=== PATIENT | female | born 1955 | race Caucasian/White ===

== ENCOUNTER 2022-10-08 06:19 | Day surgery (SDC) | payer OTHER, SELFPAY ==
[2022-09-21 08:48] VITALS: BMI 41.3
--- NOTE | 2022-10-08 06:00 | DI.RAD.S_ITS ---
PROCEDURE: XR SHOULDER RT MIN 2V INDICATIONS: prosthesis placement TECHNIQUE: 1 views of the shoulder were acquired. COMPARISON: None. FINDINGS: Bones: Patient is status post right shoulder arthroplasty. Shoulder alignment is anatomic. No fractures or dislocations. No suspicious bony lesions. Moderate acromioclavicular joint osteoarthritic changes are seen. Visualized ribs appear intact. Soft tissues: Postsurgical changes are seen in lateral right shoulder soft tissue. IMPRESSION: Postop changes from right shoulder arthroplasty with anatomic shoulder alignment. No fracture or dislocation. No gross hardware loosening or failure. Dictated by: J Luis Boyd M.D. on 10/08/2022 at 10:52 Approved by: J Luis Boyd M.D. on 10/08/2022 at 10:54
[2022-10-08 06:45] VITALS: BMI 41.3
[2022-10-08 07:09] VITALS: BP 137/54; PULSE 85; RESP 20; TEMP 36.4; O2SAT 94
[2022-10-08] MEDS: CELECOXIB 200 MG CAPSULE PO (07:17)
[2022-10-08] MEDS: LACTATED RINGERS 1,000 ML 42 ML IV ×2 (07:17→08:50)
[2022-10-08] MEDS: PREGABALIN 75 MG CAPSULE PO (07:17)
[2022-10-08] MEDS: ACETAMINOPHEN 325 MG TABLET 975 MG PO (07:17)
--- NOTE | 2022-10-08 07:24 | PM.PREOP ---
Pre-operative Note Interval Note History & Physical reviewed/Exam performed by Physician: Yes Changes to H&P: No
[2022-10-08 07:31] LABS: COVID19 -Nasal RAPID Negative (Negative)
[2022-10-08] MEDS: CEFAZOLIN VIAL 3 GM in SODIUM CHLORIDE 0.9% 100 ML IV (08:05)
[2022-10-08] MEDS: TRANEXAMIC ACID 1,000 MG VIAL 1000 MG INJ ×2 (08:10→09:34)
--- NOTE | 2022-10-08 08:24 | SUR.OPER ---
Beach chair with Maquet shoulder positioner. Lower body on padded OR bed. Head in foam padded head cradle, secured with straps. Non-operative arm secured <90 degrees abduction on padded arm board with gel pad under arm. 2 pillows under knees. Safety belt at thigh. Cloth tape over blanket over lower legs. Tape across torso. Gel pad under heels. Heels floated.
[2022-10-08] MEDS: BUPIVACAINE 0.25% (PF) 60 ML, EPINEPHrine 0.3 MG INJ (09:24)
--- NOTE | 2022-10-08 09:46 | P.OP_ITS ---
Operative Date/Time/Diagnoses Date of procedure: 10/08/22 Time of procedure: 09:46 Pre-op diagnosis: Right glenohumeral arthritis Post-op diagnosis: same Procedure & Clinicians Procedure: Right anatomic total shoulder arthroplasty Same procedure as scheduled: Yes Indications: This is a 67-year-old female who has primary osteoarthritis of the glenohumeral joint. Symptoms have been present for years, insidious onset. Patient has failed conservative therapy including injections, physical therapy, anti- inflammatories and activity modification. After extensive discussion in clinic, they wished to go forward with surgery. Risks and benefits were described including the risk of infection, bleeding, damage to internal structures including nerves. We also discussed the risk of failure of surgery and the need for revision surgery as well as the risk of anesthesia. The patient expressed understanding with these risks and wished to go forward with surgery. Surgeon: Jovon Hanson Metal Furniture Polisher: Terri Forte Anesthesia Type: General Operative Notes Findings: Findings: Osteoarthritis of the glenoid and humeral head as noted on preoperative imaging and under direct visualization Prosthetic devices, grafts, tissues, transplants, or devices: [employer]plants CortiLoc Pegged Glenoid UHMWPE [M35] Simpliciti Nucleus Size [2] Estimated Blood Loss (mL): 50 Blood products transfused: none Procedure in detail: Operative note: Patient was seen in the preoperative holding unit. The correct right shoulder was identified and marked with my initials. Again we discussed the risks and benefits of surgery and they wished to go forward with surgery. The patient was brought back to the operating room and placed supine on the operating table. She underwent smooth endotracheal intubation. All prominences were padded and they were placed into the beach chair position. Intravenous antibiotics were given. The right shoulder was then prepped with the standard sterile preparation and draping. A time-out was then performed in my initials were again identified on the correct shoulder. 1 g of IV tranexamic acid was given. A standard deltopectoral incision was made. Skin flaps were made. The cephalic vein was identified and retracted laterally. This was protected throughout the remainder of the case. Sharp dissection was made along the deltoid, subacromial and subcoracoid space to release adhesions. The conjoined tendon was identified and the axillary nerve was palpated and continuous using the tug test. It was protected throughout the remainder of the case. A brown retractor was placed underneath the deltoid muscle and a darach retractor underneath the conjoint tendon. The anterior circumflex artery and associated veins on the lower border of the subscapularis were identified and tied off using 0-Vicryl. The biceps tendon was identified in the bicipital groove. This was released from its sheath, and taken from its origin on the glenoid and tied into the pectoralis tendon for a solid tenodesis. We then began a subscapularis peel. The subscapularis was tagged with an Ethibond suture. A 360 degree circumferential release of the subscapularis was performed with protection of the axillary nerve. The coracohumeral ligament was released at the base of the coracoid. The coracoacromial ligament was left intact. The shoulder was then dislocated. Osteophytes were removed using combination of rongeur and osteo tome. The rotator cuff was noted to be intact. Using an oscillating saw a conservative humeral head cut was made using the patient's hoopa version. The head was measured and a guide for size 2 simpliciti humeral head was used to drill a central hole followed by impaction. Attention was then turned to the glenoid. After retracting the humeral head posteriorly, release of the capsule and labrum was performed. Central guidewire was placed. The glenoid was then reamed and a size medium. Peripheral holes were drilled. At this point dilute Betadine wash was performed for 2 minutes. Medium viscosity cement was mixed and the drill holes were completely dried. A all polyethylene pegged glenoid was then selected, and cemented into the glenoid. Turning back to the humerus, the humeral head was delivered and 3 seperate Nice Loupes were passed through drill holes in the bicipital groove. The Size 2 nucleus was then impacted into the humerus and a size 48 stemless humeral head was placed. The shoulder was then reduced and again brought through range of motion and was felt to be stable. The interval was then closed using #2 ethibond. The subscapularis was then repaired using a modified racking hitch with niece loupes. The deltopectoral interval was then closed with #2 Ethibond. The skin was closed with 2-0 PDS and lalit followed by Aquacel dressing. Patient was awoken from anesthesia and brought back to the postoperative recovery unit without issue. They were placed into a sling. Assisting participation: This operation could not have been safely performed (without compromising the technical results or length of the procedure) without the assistance of a skilled surgical device sales representative. The surgical device sales representative was medically necessary for proper positioning, retraction and manipulation of instruments, proper exposure, graft prep, and manipulation of tissue. Complications: none Post-operative Condition: stable Disposition: PACU Plan for aftercare: Postoperative instructions: Sling to remain on for 6 weeks. No external rotation past neutral for 6 weeks. Okay for sling to come off for shower and gentle pendulum exercises. Okay to shower over the Aquacel dressing. If any water gets underneath the dressing, remove the dressing. First postoperative visit in 2 weeks.
--- NOTE | 2022-10-08 09:52 | SUR.PREOP ---
Block start time 07 . Monitoring initiated and maintained throughout procedure. Oxygen and medications given per anesthesiologist instructions. Patient remained stable throughout procedure, no adverse reactions noted. Block end time 0738.
[2022-10-08 10:10] VITALS: BP 98/58; PULSE 102; RESP 22; TEMP 36.3; O2SAT 90
[2022-10-08 10:15] VITALS: BP 111/54; PULSE 99; RESP 20; O2SAT 94
[2022-10-08 10:20] VITALS: BP 115/42; PULSE 101; RESP 20; O2SAT 94
[2022-10-08 10:31] VITALS: BP 103/55; PULSE 102; RESP 18; TEMP 36.7; O2SAT 94
[2022-10-08 10:41] VITALS: BP 103/55; PULSE 97; RESP 18; O2SAT 93
--- NOTE | 2022-10-08 11:27 | SUR.PHASEII ---
pt reported no pain on DC was using IS and sat over 94%
== END 2022-10-08 11:15 | disposition home or self-care (01) ==
LOC: OR 06:21 → AC 06:23
PROVIDERS: Referring Provider Orthopaedic Surgery; Visit Provider Orthopaedic Surgery
PROC: 0RQJ0ZZ Repair Right Shoulder Joint, Open Approach (ICD-10-PCS; CPT 23472; principal; 2022-10-08 07:45)
DX: M19.011 Primary osteoarthritis, right shoulder (principal); M75.01 Adhesive capsulitis of right shoulder; M25.711 Osteophyte, right shoulder; Z20.822 Contact with and (suspected) exposure to COVID-19
CPT/HCPCS: 23472; 64415; 73030; 87635; C1776; C9803; J0171; J0690; J1100; J2250; J2405; J2704; J3010

== ENCOUNTER 2023-04-05 06:19 | Day surgery (SDC) | payer MEDICARE, OTHER, SELFPAY ==
[2023-03-31 13:01] VITALS: BMI 41.0
[2023-04-05 06:47] VITALS: BP 141/73; PULSE 92; RESP 16; TEMP 36.1; O2SAT 95; BMI 41.0
[2023-04-05] MEDS: LACTATED RINGERS 1,000 ML 42 ML IV (07:09)
--- NOTE | 2023-04-05 07:43 | PM.PREOP ---
Pre-operative Note Interval Note History & Physical reviewed/Exam performed by Physician: Yes Changes to H&P: No
[2023-04-05] MEDS: CEFAZOLIN 2 GM/100 ML PREMIX 100 ML IV (07:59)
--- NOTE | 2023-04-05 08:09 | SUR.OPER ---
Prone on spine table, head in foam head support, padded chest and pelvic supports, gel pad at knees, lower legs supported by pillows; nipples, genitalia and toes free of pressure, arms secured on foam padded arm boards at <90 degrees abduction. Tape over blanket at thigh secured to table.
[2023-04-05] MEDS: BUPIVACAINE 0.25% W/ EPI 30 ML VIAL INJ (08:18)
[2023-04-05] MEDS: methylPREDNISolone acetate 80 MG/ML VIAL 40 MG INJ (08:19)
--- NOTE | 2023-04-05 08:41 | PM.OP.1 ---
Operative Date/Time/Diagnoses Date of procedure: 04/05/23 Time of procedure: 07:40 Pre-op diagnosis: 1. L2-3 spinal stenosis with neurogenic claudication 2. Epidural lipomatosis Post-op diagnosis: same Procedure & Clinicians Procedure: 1. L2-3 laminectomy with bilateral facetectomies 2. Utilization of microsurgical technique and operating microscope Same procedure as scheduled: Yes Indications: Patient has been having chronic back pain and worsening lumbar radiculopathy and symptoms of neurogenic claudication. Patient failed multiple conservative management with worsening pain weakness and numbness in her lower extremity. Patient has been having difficulty performing activity of daily living. After discussing risks benefits of treatment options, patient elected proceed with surgery. Surgeon: Leticia Lynch Nipple Machine Operator: Bruno Clinton Click Yes if Unassisted: No Anesthesia Type: General Operative Notes Closure Type: primary Specimen(s): none sent Estimated Blood Loss (mL): 5 Blood products transfused: none Procedure in detail: Patient was seen in the preoperative area. Risks and benefits of the surgery was discussed with the patient. Informed consent was obtained from the patient and placed in the chart. Surgical site was marked. Patient was taken to the operative room. General anesthesia was administered. Prophylactic antibiotic was given to the patient less than 30 min before the incision was made. Patient was placed into a prone position on the Juan Manuel table. Patient's back was then prepped and draped in the sterile fashion. Time-out was performed at this time. Using AP and lateral C-arm imaging the interval between L2-3 was identified and marked on patient's back. A 1 inch incision 1 in from midline was made on the left side. The fascia was incised in line with skin incision. Globus MARS retractors was placed inside the incision and docked onto the L2 lamina. Using microsurgical technique and operating microscope, a L2 laminectomy was performed using a Kerrison rongeur. Liagamentum flavum was resected at the site of the laminotomy. Either side of the dura was exposed. Bilateral partial facetcomies was performed to further decompress the lateral recess. Patient was also found to have significant amount of epidural lipomatosis which further contributes to patient's severe spinal stenosis. The epidural lipomatosis were removed using pituitary and Kerrison rongeur to further decompress the epidural space. After the laminectomy was completed, the area medial lateral superior and inferior to the area of the laminectomy was inspected and explored using a micro curette. No other impinging structure was identified. The wound was then irrigated with sterile normal saline. 40 mg Depo-Medrol was placed into the epidural space. The deep fascia was closed with 1-0 Vicryl. The subcutaneous tissue was closed with 2-0 Vicryl. The skin was closed with skin lalit. Patient tolerated the procedure well. There were no complications. Patient was transferred recovery room in stable condition. Patient will be discharged after criteria is met from the recovery room. Complications: none Post-operative Condition: stable Disposition: PACU Plan for aftercare: Discharge to home
[2023-04-05 08:50] VITALS: BP 194/98; PULSE 101; RESP 18; TEMP 36.9; O2SAT 95
[2023-04-05 08:56] VITALS: BP 155/95; PULSE 99; RESP 21; TEMP 36.8; O2SAT 98
--- NOTE | 2023-04-05 08:59 | DI.RAD.S_ITS ---
PROCEDURE: XR LUMBAR SPINE 2-3V INDICATIONS: L 2-3 LAMINECTOMY TECHNIQUE: 2 C arm operative views of the lumbar spine were acquired. COMPARISON: [facility] NEGRITO [place], XR LUMBAR SPINE 2 OR 3 VIEWS, 05/14/2022, 10:51. FINDINGS: C-arm imaging utilized during lumbar surgery demonstrates that the C2-C3 level has been localized posteriorly with a metallic instrument. Anold moderate C2 compression fractures present. IMPRESSION: Operative imaging utilized during lumbar surgery. Dictated by: Florian Brunson M.D. on 04/05/2023 at 9:55 Approved by: Florian Brunson M.D. on 04/05/2023 at 9:57
[2023-04-05] MEDS: OXYCODONE IR 5 MG TABLET PO ×2 (09:01→09:45)
[2023-04-05 09:02] VITALS: PULSE 95; RESP 16; TEMP 36.8; O2SAT 94
[2023-04-05] MEDS: ONDANSETRON 4 MG/2 ML INJ IV (09:02)
[2023-04-05 09:09] VITALS: BP 143/55; PULSE 96; RESP 18; TEMP 36.7; O2SAT 94
[2023-04-05 10:06] VITALS: BP 138/74; PULSE 89; RESP 16; TEMP 36.2; O2SAT 94
== END 2023-04-05 09:50 | disposition home or self-care (01) ==
PROVIDERS: Referring Provider Orthopaedic Surgery Orthopaedic Surgery of the Spine; Visit Provider Orthopaedic Surgery Orthopaedic Surgery of the Spine
PROC: (CPT 63047; principal; 2023-04-05 07:45)
DX: M48.062 Spinal stenosis, lumbar region with neurogenic claudication (principal); M54.16 Radiculopathy, lumbar region; E11.9 Type 2 diabetes mellitus without complications; Z79.84 Long term (current) use of oral hypoglycemic drugs; I10 Essential (primary) hypertension
CPT/HCPCS: 63047; 72100; 76000; J0330; J0690; J1040; J1100; J2405; J2704; J3010; J3490

== ENCOUNTER 2025-01-02 15:26 | Inpatient (IN) | payer MEDICARE, OTHER, SELFPAY ==
[2024-12-25 12:45] VITALS: BMI 39.9
[2025-01-02] VITALS (9 sets, daily range): BP systolic 140–156; BP diastolic 57–71; PULSE 87–98; RESP 12–18; TEMP 35.8–36.8; O2SAT 93–97; BMI 39.9
--- NOTE | 2025-01-02 | DI.RAD.S_ITS ---
PROCEDURE: XR PELVIS 1-2V INDICATIONS: INTEROP PELVIS TECHNIQUE: Intra-operative view of the pelvis and hip acquired. COMPARISON: None. FINDINGS: Bones: Intraoperative devices prior to placement of arthroplasty prostheses are in expected positions. No fractures or suspicious bony lesions. IMPRESSION: Single intraoperative view demonstrating right hip arthroplasty. Dictated by: Chichi Mcgarry M.D. on 01/02/2025 at 17:01 Approved by: Chichi Mcgarry M.D. on 01/02/2025 at 17:01
--- NOTE | 2025-01-02 06:00 | DI.RAD.S_ITS ---
PROCEDURE: XR HIP W PEL IF DONE RT 2V INDICATIONS: TAMMIE TECHNIQUE: AP pelvis and lateral view of the hip acquired. COMPARISON: None. FINDINGS: Bones: Patient is status post total right hip arthroplasty, with hardware components in expected positions. The hip joint appears congruent. The visualized bony structures appear intact. A pre-existing total left hip arthroplasty is noted. Soft tissues: Overlying postoperative changes are noted. No suspicious soft tissue densities. IMPRESSION: Expected immediate postoperative appearance, status post total right hip arthroplasty. Dictated by: Florian Brunson M.D. on 01/02/2025 at 19:04 Approved by: Florian Brunson M.D. on 01/02/2025 at 19:04
[2025-01-02 12:09] LABS: POC Glucose 204 mg/dL (70-99)
[2025-01-02] MEDS: LACTATED RINGERS 1,000 ML 42 ML IV ×2 (12:27→17:16)
[2025-01-02] MEDS: CELECOXIB 200 MG CAPSULE PO (12:27)
[2025-01-02] MEDS: ACETAMINOPHEN 325 MG TABLET 975 MG PO (12:28)
[2025-01-02] MEDS: VANCOMYCIN 1,000 MG in SODIUM CHLORIDE 0.9% 250 ML 250 MG IV (13:20)
--- NOTE | 2025-01-02 14:14 | PM.PREOP ---
Pre-operative Note Interval Note History & Physical reviewed/Exam performed by Physician: Yes Changes to H&P: No
--- NOTE | 2025-01-02 14:32 | P.OP_ITS ---
Operative Date/Time/Diagnoses Date of procedure: 01/02/25 Time of procedure: 14:33 Pre-op diagnosis: Right hip OA Post-op diagnosis: same Procedure & Clinicians Procedure: Right total hip arthroplasty posterior approach Same procedure(s) as scheduled: Yes Indications: The patient has had progressively worsening right hip pain with radiographic changes consistent with arthritis. Non-operative management has failed and the patient has requested total hip replacement. The risks, benefits and alternatives to surgery were discussed with the patient prior to proceeding. Risks discussed included, but were not limited to, failure to relieve pain, leg length discrepancy, dislocation, stiffness, infection, nerve damage, deep venous thrombosis, pulmonary embolism, stroke, coma, heart attack, permanent paralysis and , as well as the potential need for eventual revision of the prosthetic. Surgeon: Shaniqua Hernandez Tea Room Manager: Gutierrez Bautista Anesthesia Type: General and Spinal Operative Notes Findings: Severe right hip OA, adequate stability, adequate bone Closure Type: primary Specimen(s): none sent Prosthetic devices, grafts, tissues, transplants, or devices: [employer] Synergy size 10 high offset, R3 cup 50mm, neutral poly liner,one 6.5 mm screw, 36 by 50 Applied: none Estimated Blood Loss (mL): 250 Blood products transfused: none Procedure in detail: The patient was seen in the pre-operative area, where the patient identified the right hip as the operative site and this was marked with my initials. The patient received pre-operative antibiotics and was taken to the operating room and placed on the operative table in the left lateral decubitus position after satisfactory anesthesia. A interactive multimedia designer out was performed. The right leg was prepared from the ankle to the iliac crest with ChloroPrep in the usual fashion and draped through sterile drapes. A PA was used during the procedure was essential for intraoperative retraction and safe implantation of the components. The hip was approached through an approximately 20 cm incision centered over the greater trochanter and curving gently posteriorly as it went proximally. This was carried sharply to the fascia gris, which was divided and retracted with a self retaining retractor. The trochanteric bursa was excised with care being taken to avoid the sciatic nerve, which was identified and protected throughout the case. The short external rotators were incised and the capsulomuscular flap was raised and tagged for later repair. The hip was dislocated, and a femoral neck osteotomy performed approximately 15 mm above the lesser trochanter. Retractors were placed around the femur. The canal was opened with a box cutting osteotome, followed by a T handled reamer and a lateralizing reamer. The reamers were used and then the sequential broaches was then used, followed by sequential broaching until there was good stability of the broach in the femur. Retractors were placed to expose the acetabulum. The labrum and central soft tissues were removed. Reaming was performed initially going up in 2 mm increments, then 1 mm increments until good bite was obtained with an odd sized reamer. The cup 1 mm larger than the last reamer was then inserted using the appropriate anteversion guides. It was further stabilized with a single screw. A trial neutral liner was placed. The broach was placed in the canal. A trial head and neck were then placed and the hip relocated and checked for leg length and stability. An intraoperative film confirmed the component position and no evidence of fracture. The patient was stable in the position of sleep, of squatting, and could be put through a range of motion with 45 degrees internal rotation without dislocation. At 90 degrees flexion, internal rotation to 70 degrees was possible before dislocation. This was felt to be satisfactory and the appropriate components were opened, and the trials were removed. The acetabular liner was impacted into position. The final stem was then impacted into the prepared femoral canal. A brief Betadine soak was performed while trialing with head options. The hip was meticulously irrigated with normal saline. Finally the femoral head was impacted onto the stem. The acetabulum was cleared of all material and the hip relocated one final time. The capsulomuscular flap was then repaired to the greater trochanter though an awl hole using the tag sutures. The short external rotators were repaired with a nonabsorbable suture. The fascia gris was closed with Vicryl. The subcutaneous layer was closed with barbed sutures and skin lalit. A luana dressing was applied and the patient was taken to recovery having tolerated the procedure well. Complications: none Post-operative Condition: stable Disposition: same day surgery Plan for aftercare: The patient will be maintained on a standard total hip replacement protocol with weight bearing as tolerated and posterior hip precautions. The patient will receive Aspirin and sequential compression devices for DVT prophylaxis. The patient will be discharged home when safe for the home environment.
[2025-01-02] MEDS: CEFAZOLIN 2 GM/100 ML PREMIX 100 ML IV ×2 (15:05→21:56)
[2025-01-02] MEDS: TRANEXAMIC ACID 1,000 MG VIAL 1000 MG INJ (15:10)
--- NOTE | 2025-01-02 15:27 | SUR.OPER ---
Lateral on padded OR bed. Gel axillary roll. Arms secured on padded armboard with pillow supporting top arm. Padded hip positioner braces x4 - anterior and posterior chest and pelvis. Additional gel pad used anterior pelvis. Gel pad under bottom leg from knee to foot and secured with tape over sheet.
[2025-01-02] MEDS: BUPIVACAINE 0.25% W/ EPI 30 ML VIAL 60 ML INJ (15:48)
[2025-01-02] MEDS: BUPIVACAINE LIPOSOME 266 MG/20 ML VIAL INJ (15:49)
[2025-01-02] MEDS: EPINEPHrine 1 MG/ML TOP (15:56)
[2025-01-02 18:04] LABS: POC Glucose 249 mg/dL (70-99)
[2025-01-02] MEDS: INSULIN REGULAR 100 UNIT/ML 3 ML VIAL SUBCUT (18:15)
--- NOTE | 2025-01-02 18:19 | SUR.PHASEI ---
1805 poc glucose 249 provider notified
[2025-01-02] MEDS: INSULIN REGULAR 100 UNIT/ML 3 ML VIAL IV (18:36)
[2025-01-02] MEDS: ACETAMINOPHEN IV 1,000 MG/100 ML VIAL 400 MG IV (18:36)
[2025-01-02 18:38] LABS: POC Glucose 244 mg/dL (70-99)
[2025-01-02] MEDS: OXYCODONE IR 5 MG TABLET PO ×2 (18:38→22:05)
[2025-01-02 21:13] LABS: POC Glucose 228 mg/dL (70-99)
[2025-01-02] MEDS: LACTATED RINGERS 1,000 ML 100 ML IV (21:45)
[2025-01-02] MEDS: ACETAMINOPHEN 325 MG TABLET 650 MG PO (21:45)
[2025-01-02] MEDS: GABAPENTIN 600 MG TABLET PO (21:47)
[2025-01-02] MEDS: ASPIRIN EC 81 MG TABLET PO (21:48)
[2025-01-02] MEDS: METFORMIN HCL 500 MG TABLET 1000 MG PO (21:48)
[2025-01-02] MEDS: ATORVASTATIN 20 MG TABLET PO (21:48)
[2025-01-02] MEDS: DOCUSATE 100 MG CAPSULE PO (21:49)
[2025-01-03 01:50] VITALS: BP 131/64; PULSE 89; RESP 18; TEMP 35.9; O2SAT 95
[2025-01-03 05:50] VITALS: BP 136/59; PULSE 89; RESP 18; TEMP 36.2; O2SAT 94
[2025-01-03 06:43] LABS: Hematocrit 29.5 % (36-46)
[2025-01-03 07:31] LABS: POC Glucose 248 mg/dL (70-99)
--- NOTE | 2025-01-03 07:45 | P.DS_ITS ---
History of Present Illness History of Present Illness Date Patient Seen: 01/03/25 Time Patient Seen: 07:30 Chief complaint: OPB Narrative: The patient has had progressively worsening right hip pain with radiographic changes consistent with arthritis. Non-operative management has failed and the patient has requested total hip replacement. The risks, benefits and alternatives to surgery were discussed with the patient prior to proceeding. Risks discussed included, but were not limited to, failure to relieve pain, leg length discrepancy, dislocation, stiffness, infection, nerve damage, deep venous thrombosis, pulmonary embolism, stroke, coma, heart attack, permanent paralysis and , as well as the potential need for eventual revision of the prosthetic. Discharge Providers Provider Discharge Date: 01/03/25 Consults: 01/02/25 06:00 Consult to Anesthesiology Routine Comment: Consulting Provider: Anesthesiologist Reason for consultation: Regional block for post operative pain control Has provider been notified: No 01/02/25 20:45 Consult to Dietitian, Adult Routine Comment: Reason For Exam: diabetic control Consult to Discharge Planning Routine Comment: Consult to Occupational Therapy Evaluate & Treat Comment: Physician Instructions: Evaluate and treat Consult to Physical Therapy Evaluate & Treat Comment: Physician Instructions: post op TAMMIE protocol Discharge provider: Gutierrez Bautista PA-C Summary Hospital Course Hospital Course: Procedure: Right total hip arthroplasty posterior approach Same procedure(s) as scheduled: Yes Surgeon: Shaniqua Hernandez Engine Emission Technician: Gutierrez Bautista Anesthesia Type: General and Spinal Operative Notes Findings: Severe right hip OA, adequate stability, adequate bone Closure Type: primary Specimen(s): none sent Prosthetic devices, grafts, tissues, transplants, or devices: [employer] Synergy size 10 high offset, R3 cup 50mm, neutral poly liner,one 6.5 mm screw, 36 by 50 Applied: none Estimated Blood Loss (mL): 250 Blood products transfused: none Status at Discharge Cognitive/behavioral status at discharge: oriented Functional status at discharge: uses cane/walker Overall status at discharge: patient is back to baseline Time Spent with Patient Time spent: Less than 30 minutes Exam Vital Signs (past 8 hours): - 01/03/25 01:50 01/03/25 05:50 Temperature 96.6 F L 97.2 F L Pulse Rate 89 89 Respiratory Rate 18 18 Blood Pressure 131/64 136/59 L Pulse Oximetry 95 94 Oxygen Flow Rate 0.5 0 Oxygen Delivery Method Room Air Oxygen Flow Rate 0 Narrative Exam Narrative: Patient's pain is controlled with oral medication. ?Pain is localized to surgical site. ?Patient declines any new numbness or tingling at the surgical extremity. ?Patient denies any shortness of breath, dizziness, light-headedness, nausea, vomiting, fever or chills. 5/5 strength in hip flexors, quadriceps, hamstrings, DF, PF, EHL bilaterally. Sensation to light touch intact throughout BLE. Calves soft, compressible, nontender. Dressing placed intraoperatively CDI. SCDs on and functioning. Resp Effort & Inspection: normal respiratory effort and able to speak in complete sentences Objective Labs 01/03/25 05:30 Labs: Laboratory Results - last 24 hr 01/02/25 01/02/25 01/02/25 12:04 17:59 18:33 Hgb Hct POC Whole Bld Glucose 204 H 249 H 244 H 01/02/25 01/03/25 01/03/25 20:46 05:30 07:30 Hgb 10.0 L Hct 29.5 L POC Whole Bld Glucose 228 H 248 H PFS Medical History (Updated 09/21/22 @ 09:15 by Bryanna Rodas RN) Anxiety Psoriasis Osteoarthritis Diabetes Acid reflux HLD (hyperlipidemia) HTN (hypertension) Hearing loss History of COVID-19 Surgical History (Updated 12/25/24 @ 12:44 by Melani Gutierrez RN) Hx of laminectomy (04/05/23) History of arthroplasty of right shoulder History of total left hip replacement Hx of tonsillectomy History of hysterectomy Hx of cholecystectomy History of Estella fundoplication Social History household members: spouse and children Smoking Status: Never smoker alcohol intake: never Discharge Assessment & Plan Assessment and Plan Plan of Treatment: Discharge to home. ? Posterior Hip Pre-cautions. Ambulate and weight bear as tolerated with assistive devices. ? Aspirin 81 mg twice a day for 6 weeks for DVT prevention. ? Baseline pain relief with acetaminophen 500mg every 4 hours as needed and ibuprofen 400 mg every 4 hours as needed. ?Patient has been prescribed oxycodone 5 mg every 4 ?hours as needed for breakthrough pain. ? Initiate physical therapy in the next 5-10 days. ? Keep dressing clean and dry. Keep dressing on until first office visit. If dressing becomes dirty or disrupted, replace with appropriate sized dressing. Follow up in clinic in 2 weeks for wound check. Contact clinic if there are any questions or concerns. Discharge Plan Discharge Plan Patient Disposition: Home Provider Discharge Comment: DC pending PT approval Discharge orders & Medications Discharge Orders: Discharge (Order); Ordered 01/03/25 Ordered By: Gutierrez Bautista Prescriptions: New aspirin 81 mg Tablet,Delayed Release (Dr/Ec) 81 mg PO BID Qty: 90 0RF Continued metformin 500 mg Tablet 1,000 mg PO BID lisinopril 20 mg Tablet 20 mg PO DAILY glipizide 10 mg Tablet 20 mg PO BID sertraline 100 mg Tablet 200 mg PO QAM simvastatin 40 mg Tablet 40 mg PO DAILY glimepiride 4 mg Tablet 4 mg PO BID ibuprofen 200 mg Tablet 600 mg PO DAILY PRN (Reason: Pain ) gabapentin 300 mg Capsule 900 mg PO BEDTIME gabapentin 600 mg tablet 600 mg PO 3XD Diet/Activity/Treatments Diet: Diet as Tolerated Activity: Ambulate multiple times a day. Use a cane or walker as needed. Full weight on leg. Cold/Heat Therapy: Use ice multiple times a day. Skin/Wound/Dressing Care Report to your healthcare provider any signs of infection, such as:: chills, fever, night sweats, unusual drainage and unusual redness Dressing: May shower. Leave dressing in place until follow up in office. No bathing or otherwise soaking incision. Call the office if the dressing becomes saturated inside. Visit Report/Discharge Packet Instructions: DI for Hip Replacement, DI for Prescription Opioid Use Stand Alone Forms: Patient Portal/API, Surgery Discharge Print Language: Scottish Discharge Data Attending Provider: Shaniqua Hernandez
[2025-01-03 08:00] VITALS: BP 138/60; PULSE 91; RESP 12; TEMP 36.4; O2SAT 94
[2025-01-03 08:47] VITALS: BP 138/61; PULSE 91
[2025-01-03] MEDS: lisinopriL 20 MG TABLET PO (08:47)
[2025-01-03] MEDS: SERTRALINE 50 MG TABLET 200 MG PO (08:47)
[2025-01-03] MEDS: METFORMIN HCL 500 MG TABLET 1000 MG PO ×2 (08:47→21:24)
[2025-01-03] MEDS: DOCUSATE 100 MG CAPSULE PO ×2 (08:48→21:25)
[2025-01-03] MEDS: GABAPENTIN 600 MG TABLET PO ×3 (08:48→21:26)
[2025-01-03] MEDS: IBUPROFEN 600 MG TABLET PO (08:48)
[2025-01-03] MEDS: ACETAMINOPHEN 325 MG TABLET 650 MG PO ×2 (08:49→15:25)
[2025-01-03] MEDS: ASPIRIN EC 81 MG TABLET PO ×2 (08:49→21:25)
--- NOTE | 2025-01-03 09:23 | DIET.CONS ---
Dietary Consultation Note Admission Date: Assessment: 69 y F admitted for right total hip arthroplasty. Dietitian consulted for diabetic control. Pt reports troubles getting BG meter. Has taken DM classes and seen DM educator in past. Hx of A1c 7.5%. Difficulty managing DM lately related to pain and no BG meter. Has plans to restart CHO portioning at meals and go swimming at gym when recovered from surgery. Ht: 170.18 cm Wt: 115.666 kg BMI: 39.9 Last BM: () MNA: 14 Billy Score: 20 Diet: 01/02/25 Dinner Carbohydrate Consistent Diet Diet Modifications: Carbohydrate level: Large (4 CHO) Reflex DM orders: Yes General (Regular) Diet Diet Modifications: Labs: Hgb 10.0 g/dL (12.0-16.0) L 01/03/25 05:30 Hct 29.5 % (36-46) L 01/03/25 05:30 Nutrition Diagnosis: Altered nutrition related lab values r/t endocrine dysfunction aeb pt reported hx of A1c 7.5% Interventions: -Discussed having PCP re-do BG meter prescription with DM dx and/or send to different pharmacy, BG meter availability at [facility] if pt able to poultry picking machine tender, or BG meter and strips delivered from a store -Reviewed CHO portioning and pairing foods Monitoring/Evaluations: pt to d/c today Electronically Signed by: Kalina Gutierrez 01/03/25 09:23 Clinical Dietitian [address] [address]
[2025-01-03] MEDS: OXYCODONE IR 5 MG TABLET PO (09:27)
--- NOTE | 2025-01-03 10:38 | CM.DANOTE ---
Addendum entered by JULIO Fernandez 01/03/25 11:50: ADD: PT is recommending SNF; patient hesitant. Updated Ortho PA that patient has not been cleared for discharge home today and needs another evening. Patient is hopeful to return home tomorrow if she progresses . Patient will be switched to INPT as of today 01/03. If patient does eventually fail to progress for home discharge, Medicare would pay for SNF stay starting 01/06/25. Bedside RN updated. CM team will follow closely for PT input over the next 24hrs. Original Note: Initial DCP Assessment Note Pt is a 69 yo female, resident of [place], now POD#1 from Rt hip surgery by Dr Hernandez PCP: Not listed Payer: JORGE/martha Reviewed chart, pt discussed in multidisciplinary rounds this morning. Patient has been discharged this morning pending PT eval and clearance. Patient reports living with spouse and 29 yo son. Patient and spouse have hx of joint replacements and have all DME needed. Patient feels confident in the ability of her spouse and son to assist as needed. Patient has prearranged outpatient PT for the next few months. PT eval to assist with dispo recommendation. No barriers identified at this time to patient's safe discharge home w/family to assist; close outpatient f/u recommended. CM team will plan to follow closely in case any DC needs or concerns arise. JULIO Baer Discharge Planning/Care Management CM Discharge Assessment Start: 01/02/25 11:29 Freq: Status: Active Protocol: Document 01/03/25 10:35 AUBREY (Rec: 01/03/25 10:37 AUBREY [id number]) Discharge Planning Assessment Assigned Discharge JULIO Soni Used Building Materials Yard Worker DPOA/Assigned Keith Bautista, spouse Designee Name Contact Information [phone] Advance Directives? No Prior Living House Arrangements Household Members spouse,children Independent with ADL Yes 's Is patient alert and Yes oriented? Needs Assistance Meal Prep,Home Chores / Shopping With DME Already Rented / Bath Bench,FWW / Walker,Cane Owned Patient/Family OP PT Therapy Preference Comment Patient has arranged outpatient PT for the next month or two Comment Pending PT eval. Discharge Plan Home Transportation Spouse Arrangement Referrals Initiated None needed
--- NOTE | 2025-01-03 10:50 | PT.IIE ---
Current Diagnoses Unilateral primary osteoarthritis, right hip (01/02/25) Surgery Performed Operation Date: 01/02/25 13:45 Actual Procedures p Total Hip Arthroplasty(Right) - Shaniqua Hernandez MD Surgical History (Last Updated 12/25/24 @ 12:44 by Melani Gutierrez, [place]) History of arthroplasty of right shoulder History of hysterectomy History of Estella fundoplication History of total left hip replacement Hx of cholecystectomy Hx of laminectomy (04/05/23) Hx of tonsillectomy Medical History (Last Updated 09/21/22 @ 09:15 by Bryanna Rodas RN) Acid reflux Anxiety Diabetes Hearing loss History of COVID-19 HLD (hyperlipidemia) HTN (hypertension) Osteoarthritis Psoriasis Physical Therapy Inpatient Evaluation/Re-Eval M1 PT/OT-IP Prior Functional Status Start: 01/03/25 12:38 Freq: NEEDED Status: Active Protocol: Document 01/03/25 10:50 AB (Rec: 01/03/25 12:49 AB [id number]) Medical Review Prior Functional Status Medical History Yes Reviewed Communication able to make needs known; [place] Mobility and Gait pt stated that she was modified independent with all mobilities and ambulation using a FWW but also stated that when she has to get up, somebody has to steady FWW for her since she uses FWW to get up to standing position Social History Household Members spouse,children Living Arrangements House Number of Floors ( One Floor Floors) Number of Stairs To 1 step to enter ; has L side grab bar by the door Enter/Railing? Home Environment High Toilet,Walk in Shower Home Equipment Front Wheel Walker,Raised Toilet Seat Without Armrests, Hand Held Shower,Grab Bars In Shower Additional Social pt has a recliner chair at home History Comment M2 PT-IP Current Condition Start: 01/03/25 12:38 Freq: NEEDED Status: Active Protocol: Document 01/03/25 10:50 AB (Rec: 01/03/25 12:49 AB [id number]) Physical Therapy Current Condition Current Condition Evaluation Date 01/03/25 Treatment Diagnosis s/p R TAMMIE posterior; difficulty in walking Onset Date 01/02/25 M3 PT-IP Subjective Start: 01/03/25 12:38 Freq: NEEDED Status: Active Protocol: Document 01/03/25 10:50 AB (Rec: 01/03/25 12:49 AB [id number]) Subjective Physical Therapy Visit Type Type Initial Evaluation Visit Start Time 10:50 Visit Stop Time 11:40 Number of CLARITY DEVELOPER Visits 0 Physical Therapy Visit Comments Patient Comments agreeable to do PT Therapy Pain Assessment Pain When Pain Assessed At Rest Pain Present Pain Present Pain Reported Location Right Hip Intensity 5 Scale Used Numeric (0 - 10) Pain Behaviors Facial Grimacing,Guarding,Wincing Pain Management Apply Cold,Distraction,Modification of Treatment,Re- Techniques positioning,Timing of Activity with Medications M4 PT-IP Mobility and Gait Start: 01/03/25 12:38 Freq: NEEDED Status: Active Protocol: Document 01/03/25 10:50 AB (Rec: 01/03/25 12:49 AB [id number]) PT-Bed Mobility Assessment Supine to Sit Supine to Sit Maximum Assistance,1 Person Assistance,2 Person Assistance,Head of Bed Elevated,Bedrails PT-Transfer Assessment Sit to and From Stand Sit to and from Maximum Assistance,2 Person Assistance,Use of Upper Stand Extremities Equipment Transfer Assistive Gait Belt,Front Wheeled Walker Device Orthotic/Prosthetic No Devices or Brace: Transfers Transfer Destination Chair Transfer Technique Stand Step Pivot Transfer Ability Level of Assist Maximum Assistance,2 Person Assistance,Use of Upper Extremities Comments Mobility Comments pt in bed and agreeable to do PT. obtained PLOF and home setup. post-op folder provided. educated pt on R hip posterior precautions. pt completed supine to sit max A x 1-2 and max cues. HOB elevated. pt required max A x 1-2 for scooting to EOB. attempted sit <>stand x 4 reps ; bed needed to be elevated for pt to be able to stand up. pt required max A x 2 and max cues. completed step transfer to chair using fWW max A x 2 and max cues. (+) R knee buckling x 3. positioned pt on the chair. call light and table placed within reach. informed pt regarding SNF rehab recommendation at this time. pt understood. rehabilitation caseworker informed. Gait Assessment Comments Gait Comments unable at this time PT-Balance Assessment Sitting Balance and Reactions Static Sitting Good Balance Ability Dynamic Sitting Fair Balance Ability Standing Balance and Reactions Static Standing Poor Balance Ability Dynamic Standing Poor Balance Ability Device Used FWW M5 PT-IP Objective Assessments Start: 01/03/25 12:38 Freq: NEEDED Status: Active Protocol: Document 01/03/25 10:50 AB (Rec: 01/03/25 12:49 AB [id number]) Orientation Orientation/Cognition Level of Alertness Alert Orientation Name,Place,Situation Language Function Hard of Hearing Ability Safety Awareness Decreased Safety Awareness Memory Description Short Term Impaired Gross Range of Motion Lower Extremity ROM Assessment Within Functional Limits Strength Lower Extremity Strength Assessment Right Impaired Hip 3-/5 Knee 3/5 Sensation Assessment Sensation Gross Sensation WNL Muscle Tone Muscle Tone WNL Yes M6 PT-IP Treatment Start: 01/03/25 12:38 Freq: NEEDED Status: Active Protocol: Document 01/03/25 10:50 AB (Rec: 01/03/25 12:49 AB [id number]) Physical Therapy Treatment Exercises Exercises Heel Slides Education Education Provided Precautions,Weight Bearing Status,Post-Op Packet,Safety M7 PT-IP Assessment and Plan Start: 01/03/25 12:38 Freq: NEEDED Status: Active Protocol: Document 01/03/25 10:50 AB (Rec: 01/03/25 12:49 AB [id number]) PT Summary Assessment and Plan Potential Rehabilitation Fair Potential Status of Condition Evolving at Evaluation Summary Impairments Pain,ROM,Strength,Balance,Coordination,Sensation,Tone, Cognition,Bed Mobility,Transfers,Gait,Activity Tolerance Assessment Summary pt is a 69 y/o F s/p R TAMMIE posterior approach POD 1. pt with R hip posterior precautions and is WBAT. pt requiring max A x 1-2 for bed mobility, max A x 2 for sit to stand and transfers using fWW. pt unable to ambulate at this time and has (+) R knee buckling during transfers. pt will require SNF rehab at this time. will continue to assess. Goals Bed Mobility Goal Minimal Assistance Transfer Goal Minimal Assistance,Front Wheeled Walker Gait Goal Minimal Assistance,Front Wheel Walker Gait Distance 50 Other Goals improve bed mobility, transfers, ambulation using FWW ~ 100 ft SBA up/down 1 step using FWW SBA Days to Meet Goals 10 Frequency of Treatment Frequency Of Twice a Day Treatment Treatment Plan Physical Therapy Bed Mobility Training,Transfer Training,Gait Training, Treatment Plan Therapeutic Exercise,Balance Retraining,Post Op Education,Discharge Planning,Hot or Cold Pack, Neuromuscular Re-ed,Coordination Retraining,Manual Therapy Precautions Posterior Hip No Hip Flexion > 90 degrees,No Hip Internal Rotation,No Precautions Hip Adduction Weight Bearing Status Weight Bearing Weight Bear as Tolerated Status Allowed Weight RLE WBAT Bearing Amount ( enter % or #) (%) Recommendations To Nursing Amount of Assist Mechanical Lift Needed Discharge Recommendations PT Discharge SNF Rehab Recommendations Transportation Needs Wheelchair/Cabulance at Discharge - PT assist 2
[2025-01-03] MEDS: OXYCODONE IR 10 MG TABLET PO (12:37)
[2025-01-03] MEDS: polyethylene glycoL 3350 17 GM POWD.PACK PO (12:37)
[2025-01-03] MEDS: IBUPROFEN 400 MG TABLET PO (13:22)
[2025-01-03 13:45] LABS: POC Glucose 194 mg/dL (70-99)
--- NOTE | 2025-01-03 13:55 | PT.IPTN ---
Current Diagnoses Unilateral primary osteoarthritis, right hip (01/02/25) Surgery Performed Operation Date: 01/02/25 13:45 Actual Procedures p Total Hip Arthroplasty(Right) - Shaniqua Hernandez MD Physical Therapy Treatment Note M2 PT-IP Current Condition Start: 01/03/25 12:38 Freq: NEEDED Status: Active Protocol: Document 01/03/25 10:50 AB (Rec: 01/03/25 12:49 AB [id number]) Physical Therapy Current Condition Current Condition Evaluation Date 01/03/25 Treatment Diagnosis s/p R TAMMIE posterior; difficulty in walking Onset Date 01/02/25 M3 PT-IP Subjective Start: 01/03/25 12:38 Freq: NEEDED Status: Active Protocol: Document 01/03/25 13:55 AB (Rec: 01/03/25 15:25 AB [id number]) Subjective Physical Therapy Visit Type Type Treatment Note Visit Start Time 13:55 Visit Stop Time 14:38 Number of MILL DRESSER Visits 0 Physical Therapy Visit Comments Patient Comments agreeable to do PT Therapy Pain Assessment Pain When Pain Assessed At Rest Pain Present Pain Present Pain Reported Location Right Hip Intensity 7 Scale Used Numeric (0 - 10) M4 PT-IP Mobility and Gait Start: 01/03/25 12:38 Freq: NEEDED Status: Active Protocol: Document 01/03/25 13:55 AB (Rec: 01/03/25 15:25 AB [id number]) PT-Bed Mobility Assessment Supine to Sit Supine to Sit Maximum Assistance,1 Person Assistance Sit to Supine Sit to Supine Maximum Assistance,1 Person Assistance,2 Person Assistance,Head of Bed Elevated PT-Transfer Assessment Sit to and From Stand Sit to and from Maximum Assistance,2 Person Assistance,Use of Upper Stand Extremities Equipment Transfer Assistive Gait Belt,Front Wheeled Walker Device Orthotic/Prosthetic No Devices or Brace: Comments Mobility Comments pt in bed and agreeable to do PT. completed supine heel slides prior to getting up. supine to sit max A and max cues with use of bed rail and HOB elevated. max A x 1-2 for scooting to EOB. max A x 2 for sit to stand and able to march in place max A x 2 and max cues using FWW. max A to stabilize RLE. pt able to take side steps towards HOB max A x 2 and max cues using FWW. assisted pt back to bed. required max A x 1-2 and max cues. positioned pt in bed. call light and table placed within reach. M5 PT-IP Objective Assessments Start: 01/03/25 12:38 Freq: NEEDED Status: Active Protocol: Document 01/03/25 10:50 AB (Rec: 01/03/25 12:49 AB [id number]) Orientation Orientation/Cognition Level of Alertness Alert Orientation Name,Place,Situation Language Function Hard of Hearing Ability Safety Awareness Decreased Safety Awareness Memory Description Short Term Impaired Gross Range of Motion Lower Extremity ROM Assessment Within Functional Limits Strength Lower Extremity Strength Assessment Right Impaired Hip 3-/5 Knee 3/5 Sensation Assessment Sensation Gross Sensation WNL Muscle Tone Muscle Tone WNL Yes M6 PT-IP Treatment Start: 01/03/25 12:38 Freq: NEEDED Status: Active Protocol: Document 01/03/25 13:55 AB (Rec: 01/03/25 15:25 AB [id number]) Physical Therapy Treatment Exercises Exercises Heel Slides Education Education Provided Precautions,Safety M7 PT-IP Assessment and Plan Start: 01/03/25 12:38 Freq: NEEDED Status: Active Protocol: Document 01/03/25 13:55 AB (Rec: 01/03/25 15:25 AB [id number]) PT Summary Assessment and Plan Potential Rehabilitation Fair Potential Summary Impairments Pain,ROM,Strength,Balance,Coordination,Sensation,Tone, Cognition,Bed Mobility,Transfers,Gait,Activity Tolerance Progress Towards Slow Progress due to Pain,Slow Progress due to Activity Goals Tolerance Assessment Summary pt improving slowly but continues to require max A x 2 for sit to stand but was able to take a few side steps using FWW max A x 2 to position in bed. Pt will require 24/ assist and will benefit from SNF rehab. will continue to assess. Goals Bed Mobility Goal Minimal Assistance Transfer Goal Minimal Assistance,Front Wheeled Walker Gait Goal Minimal Assistance,Front Wheel Walker Gait Distance 50 Other Goals improve bed mobility, transfers, ambulation using FWW ~ 100 ft SBA up/down 1 step using FWW SBA Days to Meet Goals 10 Frequency of Treatment Frequency Of Twice a Day Treatment Treatment Plan Physical Therapy Bed Mobility Training,Transfer Training,Gait Training, Treatment Plan Therapeutic Exercise,Balance Retraining,Post Op Education,Discharge Planning,Hot or Cold Pack, Neuromuscular Re-ed,Coordination Retraining,Manual Therapy Precautions Posterior Hip No Hip Flexion > 90 degrees,No Hip Internal Rotation,No Precautions Hip Adduction Weight Bearing Status Weight Bearing Weight Bear as Tolerated Status Allowed Weight RLE WBAT Bearing Amount ( enter % or #) (%) Recommendations To Nursing Amount of Assist Mechanical Lift Needed Discharge Recommendations PT Discharge SNF Rehab Recommendations Transportation Needs Wheelchair/Cabulance at Discharge - PT assist 2
--- NOTE | 2025-01-03 14:38 | OT.IP.EVAL ---
Current Diagnoses Unilateral primary osteoarthritis, right hip (01/02/25) Surgery Performed Operation Date: 01/02/25 13:45 Actual Procedures p Total Hip Arthroplasty(Right) - Shaniqua Hernandez MD Past Medical History (Last Updated 09/21/22 @ 09:15 by Bryanna Rodas, RN) Acid reflux Anxiety Diabetes Hearing loss History of COVID-19 HLD (hyperlipidemia) HTN (hypertension) Osteoarthritis Psoriasis Surgical History (Last Updated 12/25/24 @ 12:44 by Melani Gutierrez RN) History of arthroplasty of right shoulder History of hysterectomy History of Estella fundoplication History of total left hip replacement Hx of cholecystectomy Hx of laminectomy (04/05/23) Hx of tonsillectomy Occupational Therapy Inpatient Evaluation/Re-Eval M1 PT/OT-IP Prior Functional Status Start: 01/03/25 12:38 Freq: NEEDED Status: Active Protocol: Document 01/03/25 15:54 [facility] (Rec: 01/03/25 16:11 [facility] Desktop) Medical Review Prior Functional Status Medical History Yes Reviewed Communication able to make needs known; ATQASUK Mobility and Gait pt stated that she was modified independent with all mobilities and ambulation using a FWW but also stated that when she has to get up, somebody has to steady FWW for her since she uses FWW to get up to standing position Activities of Daily Pt states her son assist with her socks. Pt has pain Living and IADL's which limited her IADL needs. Social History Household Members spouse,children Living Arrangements House Number of Floors ( One Floor Floors) Number of Stairs To 1 step to enter ; has L side grab bar by the door Enter/Railing? Home Environment High Toilet,Walk in Shower Home Equipment Front Wheel Walker,Raised Toilet Seat Without Armrests, Hand Held Shower,Manager Of Merchandising,Grab Bars In Shower Additional Social pt has a recliner chair at home History Comment M2 OT-IP Current Condition Start: 01/03/25 15:54 Freq: Status: Active Protocol: Document 01/03/25 15:54 [facility] (Rec: 01/03/25 16:11 [facility] Desktop) Occupational Therapy Current Condition Current Condition Evaluation Date 01/03/25 Treatment Diagnosis S/P R TAMMIE Posterior approach Diagnosis Onset Date 01/02/25 Post Operative Precautions Posterior Hip No Hip Flexion > 90 degrees,No Hip Internal Rotation,No Precautions Hip Adduction Weight Bearing Status Weight Bearing Weight Bear as Tolerated Status M3 OT- IP Subjective and Pain Start: 01/03/25 15:54 Freq: Status: Active Protocol: Document 01/03/25 15:54 [facility] (Rec: 01/03/25 16:11 [facility] Desktop) OT- Subjective Occupational Therapy Visit Type Type Initial Evaluation Visit Start Time 14:07 Visit Stop Time 14:38 Occupational Therapy Visit Comments Patient Comments Pt agreed to get up. Patient/Caregiver TO go home. Goals OT Pain Assessment Pain When Pain Assessed During Mobility Pain Present Pain Present Pain Reported Location Right Hip Intensity 7 Scale Used Numeric (0 - 10) M4 OT- IP ADL's Start: 01/03/25 15:54 Freq: Status: Active Protocol: Document 01/03/25 15:54 [facility] (Rec: 01/03/25 16:11 [facility] Desktop) OT [id number] Comments OT Self-Feeding Not observed. Comments OT ADL-Grooming Comments OT Grooming Comments Not performed. OT ADL-Oral Care Comments Oral Care Comments Not performed. OT ADL-Dressing General Eval Lower Body Dressing Maximum Assistance Ability Comments OT Dressing Comments Initiated education of dress the RLE first and take out last. To have assist or use of LB dressing equipment so able to follow her hip precautions. OT ADL-Toileting Comments OT Toileting Not performed. Suggested pt to get BSC. Comments OT ADL-Bathing Comments OT Bathing Comments Sponge bath more appropriate at this time. Suggested pt get a shower chair. M5 OT- IP IADL's Start: 01/03/25 15:54 Freq: Status: Active Protocol: Document 01/03/25 15:54 [facility] (Rec: 01/03/25 16:11 [facility] Desktop) OT-Instrumental Activities of Daily Living Home Safety Awareness Awareness of Need Decreased Awareness for Assistance at Home Home Safety Comments Pt feels that her son and will be able to effective assist her for her needs. Meal Preparation Meal Preparation Caregiver Provides Assist Cattle Broker Cattle Broker Caregiver Provides Assist M6 OT- IP Functional Cognition Start: 01/03/25 15:54 Freq: Status: Active Protocol: Document 01/03/25 15:54 [facility] (Rec: 01/03/25 16:11 [facility] Desktop) Cognitive Factors Limiting Selfcare Function Cognitive Ability Level of Alertness Alert Patient Orientation Name,Place,Situation Attention Span Capable of Focused Attention,Capable of Sustained Ability Attention Ability to Follow Able to Follow One Step Commands with Increased Time, Commands Able to Follow One Step Commands with Repetition Safety Awareness Decreased Ability to Apply Precautions Cognitive Comments Cognitive Assessment Pt needing reminders to incorporate her hip precautions Comments during mobility needs. Pt needing step by step instructions to best follow her precautions at this time. OT- Vision and Hearing OT- Hearing Assessment OT- Hearing WFL Assessment M7 OT- IP Mobility and Balance Start: 01/03/25 15:54 Freq: Status: Active Protocol: Document 01/03/25 15:54 [facility] (Rec: 01/03/25 16:11 [facility] Desktop) OT- Bed Mobility Assessment Supine to Sit Supine to Sit Assist Maximum Assistance,1 Person Assistance Scooting Scooting to Edge of Maximum Assistance,1 Person Assistance,2 Person Bed Assistance OT-Transfer Assessment Sit to and From Stand Sit to and from Maximum Assistance,1 Person Assistance Stand Comments Mobility Comments MAX AX 1 to get to supine. MAX AX 2 to stand to the FWW and assist to keep the RLE from buckling, balance ,and to help guide the FWW as taking side step to the HOB. Pt will benefit from a bed rail or sleep in her recliner initially. OT- Balance Assessment Sitting Balance and Reactions Static Sitting Good Balance Ability Dynamic Sitting Fair Balance Ability Standing Balance and Reactions Static Standing Poor Balance Ability Dynamic Standing Poor Balance Ability M8 OT- IP Objective Assessments Start: 01/03/25 15:54 Freq: Status: Active Protocol: Document 01/03/25 15:54 [facility] (Rec: 01/03/25 16:11 [facility] Desktop) OT Gross Range of Motion Upper Extremity Range of Motion Assessment Bilaterally Impaired OT Strength Upper Extremity Strength Assessment Bilaterally Impaired Comments Strength Comments 4-/5 to 4/5 from proximal to distal. M9 OT- IP Assessment and Plan Start: 01/03/25 15:54 Freq: Status: Active Protocol: Document 01/03/25 15:54 [facility] (Rec: 01/03/25 16:11 [facility] Desktop) OT Summary Assessment and Plan Potential Rehabilitation Good Potential Analytic Complexity Low at Evaluation Summary OT Impairments Pain,Strength,Balance,Functional Mobility,Grooming, Dressing,Toileting,Bathing,Toilet Transfers Progress Towards Slow Progress due to Pain,Slow Progress due to Activity Goals Tolerance,Slow Progress due to Cognition Assessment Summary Pt low complexity and main barriers are pain, step, and needing two person assist for bed mobility and standing to FWW. Pt is adamant of going home , but would benefit from her and son to come in for caregiver training. Pt still needing safety reminders for her hip precautions for ADL and mobility needs. Pt to go to SNF when medically stable, unless able to progress and complete caregiver training. Goals Self-Feeding Goal Independent Grooming Goal Independent Dressing Goal Moderate Assistance Toileting Goal Minimal Assistance Bathing Goal Moderate Assistance Toilet Transfer Goal Minimal Assistance Shower Transfer Goal Moderate Assistance Patient/Caregiver Demonstrate Post-Op Precautions,Caregiver Independent Education Goal Assisting Patient Days to Meet Goals 15 Frequency of Treatment Other frequency 5x/week Treatment Plan OT Treatment Plan ADL Training,Functional Cognition Training,Functional Mobility Other Treatment Transfer to [facility] with MODA x2 with FWW. Recommendations and Next Treatment Focus Discharge Recommendations OT Discharge SNF Rehab Recommendations Transportation Needs Wheelchair/Cabulance at Discharge
[2025-01-03 16:24] LABS: POC Glucose 258 mg/dL (70-99)
[2025-01-03 20:00] VITALS: BP 86/38; PULSE 85; RESP 18; TEMP 35.9; O2SAT 92
[2025-01-03] MEDS: CALCIUM CARBONATE 500 MG TAB 1000 MG PO (20:44)
--- NOTE | 2025-01-03 20:50 | PC.NURSE ---
counselor manager RN came on shift and did head to toe assessment on patient and noted BP hypotensive highest reading 80/38 Map 58 HR 82, Patient is AOX4; room air 96%, asymptomatic. RN called Surgical office evening phone line, Dr Sheriff called and was updated on Patient situation, VS; Dr Sheriff said to give NS bolus of 500mL and notify if any changes occur. Patient is currently bridged and does not have any complaints of pain or Nausea.
[2025-01-03 20:56] LABS: POC Glucose 243 mg/dL (70-99)
[2025-01-03] MEDS: ATORVASTATIN 20 MG TABLET PO (21:25)
[2025-01-04 04:22] VITALS: BP 102/45; PULSE 102; RESP 16; TEMP 36.4; O2SAT 92
[2025-01-04] MEDS: OXYCODONE IR 5 MG TABLET PO ×3 (04:23→08:48)
--- NOTE | 2025-01-04 07:06 | PM.PNPO.1 ---
Subjective Subjective Interval history: Postop right total hip arthroplasty. Patient was hypotensive overnight and had a bolus. Better this morning. Denies fevers chills nausea vomiting dizziness or weakness. States she was having some muscle spasms in her leg but Flexeril helped. States PT told her she was better yesterday. Interested in going home today. Exam Vital Signs (past 8 hours): - 01/04/25 04:22 Temperature 97.5 F L Pulse Rate 102 H Respiratory Rate 16 Blood Pressure 102/45 L Pulse Oximetry 92 Oxygen Flow Rate 0 Oxygen Delivery Method Room Air Oxygen Flow Rate 0 Narrative Exam Narrative: Alert oriented no acute distress. Answers questions appropriately. Right hip dressing in place clean dry and intact. 5/5 dorsiflexion and plantar flexion. Calf and thigh soft Objective Labs 01/03/25 05:30 Labs: Laboratory Results - last 24 hr 01/03/25 01/03/25 01/03/25 05:30 07:30 11:30 Hgb 10.0 L Hct 29.5 L POC Whole Bld Glucose 248 H 194 H 01/03/25 01/03/25 16:22 20:52 Hgb Hct POC Whole Bld Glucose 258 H 243 H PFSH Medical History (Updated 09/21/22 @ 09:15 by Bryanna Rodas RN) Anxiety Psoriasis Osteoarthritis Diabetes Acid reflux HLD (hyperlipidemia) HTN (hypertension) Hearing loss History of COVID-19 Surgical History (Updated 12/25/24 @ 12:44 by Melani Gutierrez RN) Hx of laminectomy (04/05/23) History of arthroplasty of right shoulder History of total left hip replacement Hx of tonsillectomy History of hysterectomy Hx of cholecystectomy History of Estella fundoplication Social History household members: spouse and children Smoking Status: Never smoker alcohol intake: never Assessment & Plan Post-op Postoperative Procedures: Procedures Operation Date: 01/02/25 13:45 Actual Procedure Side Surgeon p Total Hip Arthroplasty Right Shaniqua Hernandez MD Postoperative day: 2 Postoperative status: doing well Postoperative plan: routine post-op care Postoperative plan narrative: We will work with physical therapy again today. Likely home discharge today if doing well versus SNF at later date Quality VTE Deep Vein Thrombosis/Pulmonary Embolism Present on Admission: No
--- NOTE | 2025-01-04 07:10 | P.DS_ITS ---
History of Present Illness History of Present Illness Date Patient Seen: 01/04/25 Time Patient Seen: 07:10 Chief complaint: OPB Narrative: Status post right hip arthroplasty by Dr. Hernandez. Addendum to previous discharge summary. Patient stayed overnight to work with physical therapy again. Had a bolus overnight for hypotension but doing well this morning. States did better with physical therapy yesterday. Wants to go home. Vital stable this morning. Discharge Providers Provider Date of admission: 01/02/25 15:26 Discharge Date: 01/04/25 Consults: 01/02/25 06:00 Consult to Anesthesiology Routine Comment: Consulting Provider: Anesthesiologist Reason for consultation: Regional block for post operative pain control Has provider been notified: No 01/02/25 20:45 Consult to Discharge Planning Routine Comment: Consult to Occupational Therapy Evaluate & Treat Comment: Physician Instructions: Evaluate and treat Consult to Physical Therapy Evaluate & Treat Comment: Physician Instructions: post op TAMMIE protocol Discharge provider: Tita Garsia MD Summary Hospital Course Discharge Diagnosis: Hip arthritis right Hospital Course: Had a right total hip arthroplasty on 01/02/[address] Hernandez. Stayed in the hospital overnight work with physical therapy and on pain control. Was recommended for additional physical therapy sessions on postop day 1 on postop day 2 work with physical therapy the patient desired to go home. Was appropriate for discharge. Status at Discharge Cognitive/behavioral status at discharge: at baseline, oriented Functional status at discharge: uses cane/walker Overall status at discharge: patient is progressing back to baseline Exam Vital Signs (past 8 hours): - 01/04/25 04:22 Temperature 97.5 F L Pulse Rate 102 H Respiratory Rate 16 Blood Pressure 102/45 L Pulse Oximetry 92 Oxygen Flow Rate 0 Oxygen Delivery Method Room Air Oxygen Flow Rate 0 Narrative Exam Narrative: Alert and oriented no acute distress. Lungs clear to auscultation. Heart regular rate and rhythm Right hip dressing clean dry and intact dorsiflexion plantar flexion 5/5. Objective Labs 01/03/25 05:30 Labs: Laboratory Results - last 24 hr 01/03/25 01/03/25 01/03/25 07:30 11:30 16:22 POC Whole Bld Glucose 248 H 194 H 258 H 01/03/25 20:52 POC Whole Bld Glucose 243 H [facility] Medical History (Updated 09/21/22 @ 09:15 by Bryanna Rodas RN) Anxiety Psoriasis Osteoarthritis Diabetes Acid reflux HLD (hyperlipidemia) HTN (hypertension) Hearing loss History of COVID-19 Surgical History (Updated 12/25/24 @ 12:44 by Melani Gutierrez RN) Hx of laminectomy (04/05/23) History of arthroplasty of right shoulder History of total left hip replacement Hx of tonsillectomy History of hysterectomy Hx of cholecystectomy History of Estella fundoplication Social History household members: spouse and children Smoking Status: Never smoker alcohol intake: never Discharge Assessment & Plan Assessment and Plan Assessment: Postop day 2 right hip arthroplasty. Plan of Treatment: Discharge to home. ? Posterior Hip Pre-cautions. Ambulate and weight bear as tolerated with assistive devices. ? Aspirin 81 mg twice a day for 6 weeks for DVT prevention. ? Baseline pain relief with acetaminophen 500mg every 4 hours as needed and ibuprofen 400 mg every 4 hours as needed. ?Patient has been prescribed oxycodone 5 mg every 4 ?hours as needed for breakthrough pain. ? Initiate physical therapy in the next 5-10 days. ? Keep dressing clean and dry. Keep dressing on until first office visit. If dressing becomes dirty or disrupted, replace with appropriate sized dressing. Follow up in clinic in 2 weeks for wound check. Contact clinic if there are any questions or concerns. Discharge Plan Discharge Plan Patient Disposition: Home Provider Discharge Comment: DC pending PT approval Discharge orders & Medications Prescriptions: New aspirin 81 mg Tablet,Delayed Release (Dr/Ec) 81 mg PO BID Qty: 90 0RF Continued metformin 500 mg Tablet 1,000 mg PO BID lisinopril 20 mg Tablet 20 mg PO DAILY glipizide 10 mg Tablet 20 mg PO BID sertraline 100 mg Tablet 200 mg PO QAM simvastatin 40 mg Tablet 40 mg PO DAILY glimepiride 4 mg Tablet 4 mg PO BID ibuprofen 200 mg Tablet 600 mg PO DAILY PRN (Reason: Pain ) gabapentin 300 mg Capsule 900 mg PO BEDTIME gabapentin 600 mg tablet 600 mg PO 3XD Diet/Activity/Treatments Diet: Diet as Tolerated Activity: Ambulate multiple times a day. Use a cane or walker as needed. Full weight on leg. Cold/Heat Therapy: Use ice multiple times a day. Skin/Wound/Dressing Care Report to your healthcare provider any signs of infection, such as:: chills, fever, night sweats, unusual drainage and unusual redness Dressing: May shower. Leave dressing in place until follow up in office. No bathing or otherwise soaking incision. Call the office if the dressing becomes saturated inside. Visit Report/Discharge Packet Instructions: DI for Hip Replacement, DI for Prescription Opioid Use Stand Alone Forms: Patient Portal/API, Surgery Discharge Quality VTE Deep Vein Thrombosis/Pulmonary Embolism Present on Admission: No
--- NOTE | 2025-01-04 07:27 | PM.PNPO.1 ---
Subjective Subjective Interval history: She did have some hypotension overnight and required a L of fluid. She notes that she is feeling okay this morning. She also has intermittent spasms in her right leg she said the this has previously responded to Flexeril. She was difficult to mobilize yesterday. Exam Vital Signs (past 8 hours): - 01/04/25 04:22 Temperature 97.5 F L Pulse Rate 102 H Respiratory Rate 16 Blood Pressure 102/45 L Pulse Oximetry 92 Oxygen Flow Rate 0 Oxygen Delivery Method Room Air Oxygen Flow Rate 0 Narrative Exam Narrative: Alert very conversant, mild pain with range motion of the right hip, dressing intact, calf soft distally, neurologically intact distally Objective Labs 01/03/25 05:30 Labs: Laboratory Results - last 24 hr 01/03/25 01/03/25 01/03/25 07:30 11:30 16:22 POC Whole Bld Glucose 248 H 194 H 258 H 01/03/25 20:52 POC Whole Bld Glucose 243 H [facility] Medical History (Updated 09/21/22 @ 09:15 by Bryanna Rodas RN) Anxiety Psoriasis Osteoarthritis Diabetes Acid reflux HLD (hyperlipidemia) HTN (hypertension) Hearing loss History of COVID-19 Surgical History (Updated 12/25/24 @ 12:44 by Melani Gutierrez RN) Hx of laminectomy (04/05/23) History of arthroplasty of right shoulder History of total left hip replacement Hx of tonsillectomy History of hysterectomy Hx of cholecystectomy History of Estella fundoplication Social History household members: spouse and children Smoking Status: Never smoker alcohol intake: never Assessment & Plan Post-op Postoperative Procedures: Procedures Operation Date: 01/02/25 13:45 Actual Procedure Side Surgeon p Total Hip Arthroplasty Right Shaniqua Hernandez MD Postoperative day: 2 Postoperative status: doing well Postoperative status narrative: She is doing okay postoperatively. She did have some hypotension overnight. We will plan to mobilize her with physical therapy today. Postoperative plan: routine post-op care Postoperative plan narrative: She needs to be mobilized with physical therapy hopefully we can discharge her to home in the afternoon. I am going to add Flexeril for some muscle spasms. Quality VTE Deep Vein Thrombosis/Pulmonary Embolism Present on Admission: No
[2025-01-04 07:59] LABS: POC Glucose 222 mg/dL (70-99)
[2025-01-04 08:00] VITALS: BP 91/51; PULSE 110; RESP 20; TEMP 36.8; O2SAT 91
[2025-01-04] MEDS: IBUPROFEN 600 MG TABLET PO (08:47)
[2025-01-04] MEDS: ASPIRIN EC 81 MG TABLET PO ×2 (08:47→21:14)
[2025-01-04] MEDS: DOCUSATE 100 MG CAPSULE PO ×2 (08:47→21:14)
[2025-01-04] MEDS: METFORMIN HCL 500 MG TABLET 1000 MG PO ×2 (08:47→21:14)
[2025-01-04] MEDS: ACETAMINOPHEN 325 MG TABLET 650 MG PO ×3 (08:47→21:14)
[2025-01-04] MEDS: polyethylene glycoL 3350 17 GM POWD.PACK PO (08:48)
[2025-01-04] MEDS: GABAPENTIN 600 MG TABLET PO ×3 (08:48→21:14)
[2025-01-04] MEDS: LACTATED RINGERS 1,000 ML 100 ML IV ×3 (08:48→23:12)
[2025-01-04] MEDS: SERTRALINE 50 MG TABLET 200 MG PO (08:48)
--- NOTE | 2025-01-04 09:45 | PT.IPTN ---
Current Diagnoses Unilateral primary osteoarthritis, right hip (01/02/25) Surgery Performed Operation Date: 01/02/25 13:45 Actual Procedures p Total Hip Arthroplasty(Right) - Shaniqua Hernandez MD Physical Therapy Treatment Note M2 PT-IP Current Condition Start: 01/03/25 12:38 Freq: NEEDED Status: Active Protocol: Document 01/03/25 10:50 AB (Rec: 01/03/25 12:49 AB [id number]) Physical Therapy Current Condition Current Condition Evaluation Date 01/03/25 Treatment Diagnosis s/p R TAMMIE posterior; difficulty in walking Onset Date 01/02/25 M3 PT-IP Subjective Start: 01/03/25 12:38 Freq: NEEDED Status: Active Protocol: Document 01/04/25 09:45 DLM (Rec: 01/04/25 10:34 DLM Desktop) Subjective Physical Therapy Visit Type Type Treatment Note Visit Start Time 09:09 Visit Stop Time 09:45 Notes 36 min Number of CANE PACKER Visits 0 Physical Therapy Visit Comments Patient Comments She reports ongoing back and knee pain in addition to her right hip pain. She wants to discharge home. She does not want to go to SNF. Patient Goals Return home with family help Therapy Pain Assessment Pain When Pain Assessed During Mobility Pain Present Pain Present Pain Reported Location Back Intensity 8 Scale Used Numeric (0 - 10) Description Aching,Tender,Tightness,With Movement Pain Behaviors Facial Grimacing,Wincing Pain Management Modification of Treatment,Re-positioning Techniques Right Hip Intensity 5 Scale Used Numeric (0 - 10) Description Aching,Tender,With Movement Pain Behaviors Facial Grimacing,Guarding,Wincing Pain Management Apply Cold,Modification of Treatment,Re-positioning Techniques M4 PT-IP Mobility and Gait Start: 01/03/25 12:38 Freq: NEEDED Status: Active Protocol: Document 01/04/25 09:45 DLM (Rec: 01/04/25 10:34 DLM Desktop) PT-Bed Mobility Assessment Rolling Type of Rolling Bilateral Level of Assist Moderate Assistance,Maximal Assistance Supine to Sit Supine to Sit Maximum Assistance,1 Person Assistance,Head of Bed Elevated,Bedrails Sit to Supine Sit to Supine Maximum Assistance,2 Person Assistance,Bedrails Scooting Scooting to Edge of Maximum Assistance Bed Scooting Up and Down Dependent in Bed PT-Transfer Assessment Sit to and From Stand Sit to and from Maximum Assistance,1 Person Assistance,Use of Upper Stand Extremities Equipment Transfer Assistive Gait Belt,Front Wheeled Walker Device Comments Mobility Comments Pt stood at edge of bed with FWW x 3 trials, she is unable to fully stand erect and was not able to get left hand up to FWW (only right hand on FWW). She reports back pain increases when she tries to stand. Pt attempts to pull on FWW to get up but does better when left UE pushes up from bed using bed handle. She was not able to take any functional steps this visit. She declined calderon lift to recliner stating she was too tired after trying to stand. Pt's bed was wet with urine this visit with external turpin in place. Coordinated care with nursing to get pt's bed clean/dry . Left pt in care of nursing for ongoing ADL's. Gait Assessment Comments Gait Comments unable PT-Balance Assessment Sitting Balance and Reactions Static Sitting Good Balance Ability Dynamic Sitting Fair Balance Ability Standing Balance and Reactions Static Standing Poor Balance Ability Dynamic Standing Poor Balance Ability Device Used FWW M5 PT-IP Objective Assessments Start: 01/03/25 12:38 Freq: NEEDED Status: Active Protocol: Document 01/03/25 10:50 AB (Rec: 01/03/25 12:49 AB [id number]) Orientation Orientation/Cognition Level of Alertness Alert Orientation Name,Place,Situation Language Function Hard of Hearing Ability Safety Awareness Decreased Safety Awareness Memory Description Short Term Impaired Gross Range of Motion Lower Extremity ROM Assessment Within Functional Limits Strength Lower Extremity Strength Assessment Right Impaired Hip 3-/5 Knee 3/5 Sensation Assessment Sensation Gross Sensation WNL Muscle Tone Muscle Tone WNL Yes M6 PT-IP Treatment Start: 01/03/25 12:38 Freq: NEEDED Status: Active Protocol: Document 01/04/25 09:45 DLM (Rec: 01/04/25 10:34 DLM Desktop) Physical Therapy Treatment Exercises Exercises Ankle Pumps Education Education Provided Precautions,Safety M7 PT-IP Assessment and Plan Start: 01/03/25 12:38 Freq: NEEDED Status: Active Protocol: Document 01/04/25 09:45 DLM (Rec: 01/04/25 10:34 DLM Desktop) PT Summary Assessment and Plan Summary Impairments Pain,ROM,Strength,Balance,Coordination,Sensation,Tone, Cognition,Bed Mobility,Transfers,Gait,Activity Tolerance Progress Towards Slow Progress due to Pain,Slow Progress due to Activity Goals Tolerance Assessment Summary Sally is progressing slowly in therapy post-op right TAMMIE. She has back and right knee pain that further complicates her mobility. She moves slowly due to pain and functional weakness. She has great difficulty scooting on the bed in sitting and supine. After 3 trials of standing with the FWW she was not able to achieve a fully standing position with both hands on the FWW this visit. Pt requested back to bed to rest after activity. No light-headedness reported during therapy. She can verbalize her posterior hip precautions this visit. Recommend SNF rehab at discharge. Anticipate she will progress well but slowly with her therapy. Pt is very motivated to return home. Discussed with her nurse that she is not safe to discharge home today. Goals Bed Mobility Goal Minimal Assistance Transfer Goal Minimal Assistance,Front Wheeled Walker Gait Goal Minimal Assistance,Front Wheel Walker Gait Distance 50 Other Goals improve bed mobility, transfers, ambulation using FWW ~ 100 ft SBA up/down 1 step using FWW SBA Days to Meet Goals 10 Frequency of Treatment Frequency Of Twice a Day Treatment Treatment Plan Physical Therapy Bed Mobility Training,Transfer Training,Gait Training, Treatment Plan Therapeutic Exercise,Balance Retraining,Post Op Education,Discharge Planning,Hot or Cold Pack, Neuromuscular Re-ed,Manual Therapy Precautions Posterior Hip No Hip Flexion > 90 degrees,No Hip Internal Rotation,No Precautions Hip Adduction Other Precautions chronic back pain, fall risk Weight Bearing Status Weight Bearing Weight Bear as Tolerated Status Allowed Weight right TAMMIE 01/02/25, use FWW Bearing Amount ( enter % or #) (%) Recommendations To Nursing Amount of Assist 2 Person Assist Needed Discharge Recommendations PT Discharge SNF Rehab Recommendations Transportation Needs Stretcher/Ambulance at Discharge - PT assist 2
[2025-01-04 11:37] LABS: POC Glucose 213 mg/dL (70-99)
--- NOTE | 2025-01-04 11:37 | OT.IP.TRT ---
Current Diagnoses Unilateral primary osteoarthritis, right hip (01/02/25) Surgery Performed Operation Date: 01/02/25 13:45 Actual Procedures p Total Hip Arthroplasty(Right) - Shaniqua Hernandez MD Occupational Therapy Treatment Note M2 OT-IP Current Condition Start: 01/03/25 15:54 Freq: Status: Active Protocol: Document 01/03/25 15:54 [facility] (Rec: 01/03/25 16:11 [facility] Desktop) Occupational Therapy Current Condition Current Condition Evaluation Date 01/03/25 Treatment Diagnosis S/P R TAMMIE Posterior approach Diagnosis Onset Date 01/02/25 Post Operative Precautions Posterior Hip No Hip Flexion > 90 degrees,No Hip Internal Rotation,No Precautions Hip Adduction Weight Bearing Status Weight Bearing Weight Bear as Tolerated Status M3 OT- IP Subjective and Pain Start: 01/03/25 15:54 Freq: Status: Active Protocol: Document 01/04/25 13:09 [facility] (Rec: 01/04/25 13:19 [facility] Desktop) OT- Subjective Occupational Therapy Visit Type Type Treatment Note Visit Start Time 11:14 Visit Stop Time 11:37 Occupational Therapy Visit Comments Patient Comments Pt too tired to get up and but agreed to go over hip precaution needs. Patient/Caregiver To get better. Goals OT Pain Assessment Pain When Pain Assessed At Rest Pain Present Pain Present Pain Reported Location Back Pain Behaviors Facial Grimacing Right Hip Pain Behaviors Facial Grimacing M4 OT- IP ADL's Start: 01/03/25 15:54 Freq: Status: Active Protocol: Document 01/03/25 15:54 [facility] (Rec: 01/03/25 16:11 [facility] Desktop) OT FOR-Byya-C[facility] Comments OT Self-Feeding Not observed. Comments OT ADL-Grooming Comments OT Grooming Comments Not performed. OT ADL-Oral Care Comments Oral Care Comments Not performed. OT ADL-Dressing General Eval Lower Body Dressing Maximum Assistance Ability Comments OT Dressing Comments Initiated education of dress the RLE first and take out last. To have assist or use of LB dressing equipment so able to follow her hip precautions. OT ADL-Toileting Comments OT Toileting Not performed. Comments OT ADL-Bathing Comments OT Bathing Comments Sponge bath more appropriate at this time. M5 OT- IP IADL's Start: 01/03/25 15:54 Freq: Status: Active Protocol: Document 01/03/25 15:54 [facility] (Rec: 01/03/25 16:11 [facility] Desktop) OT-Instrumental Activities of Daily Living Home Safety Awareness Awareness of Need Decreased Awareness for Assistance at Home Home Safety Comments Pt feels that her son and will be able to effective assist her for her needs. Meal Preparation Meal Preparation Caregiver Provides Assist Prize Jacker Prize Jacker Caregiver Provides Assist M6 OT- IP Functional Cognition Start: 01/03/25 15:54 Freq: Status: Active Protocol: Document 01/04/25 13:09 [facility] (Rec: 01/04/25 13:19 [facility] Desktop) Cognitive Factors Limiting Selfcare Function Cognitive Ability Level of Alertness Alert Attention Span Capable of Focused Attention,Capable of Sustained Ability Attention Ability to Follow Able to Follow One Step Commands Commands Cognitive Comments Cognitive Assessment Pt able to state her hip precautions. Able to go over Comments various scenarios with pt and pt able to accurately identify which precautions that she is not allowed to do. Pt able to state has ordered all equipment needs for home use-shower chair, BSC, and bed rail. Pt also requested to have two person assist later for PT session. Able to pass it along to therapy team. M7 OT- IP Mobility and Balance Start: 01/03/25 15:54 Freq: Status: Active Protocol: Document 01/03/25 15:54 [facility] (Rec: 01/03/25 16:11 [facility] Desktop) OT- Bed Mobility Assessment Supine to Sit Supine to Sit Assist Maximum Assistance,1 Person Assistance Scooting Scooting to Edge of Maximum Assistance,1 Person Assistance,2 Person Bed Assistance OT-Transfer Assessment Sit to and From Stand Sit to and from Maximum Assistance,1 Person Assistance Stand Comments Mobility Comments MAX AX 1 to get to supine. MAX AX 2 to stand to the FWW and assist to keep the RLE from buckling, balance ,and to help guide the FWW as taking side step to the HOB. OT- Balance Assessment Sitting Balance and Reactions Static Sitting Good Balance Ability Dynamic Sitting Fair Balance Ability Standing Balance and Reactions Static Standing Poor Balance Ability Dynamic Standing Poor Balance Ability M8 OT- IP Objective Assessments Start: 01/03/25 15:54 Freq: Status: Active Protocol: Document 01/03/25 15:54 [facility] (Rec: 01/03/25 16:11 [facility] Desktop) OT Gross Range of Motion Upper Extremity Range of Motion Assessment Bilaterally Impaired OT Strength Upper Extremity Strength Assessment Bilaterally Impaired Comments Strength Comments 4-/5 to 4/5 from proximal to distal. M9 OT- IP Assessment and Plan Start: 01/03/25 15:54 Freq: Status: Active Protocol: Document 01/04/25 13:09 [facility] (Rec: 01/04/25 13:19 [facility] Desktop) OT Summary Assessment and Plan Potential Rehabilitation Good Potential Analytic Complexity Low at Evaluation Summary OT Impairments Pain,Strength,Balance,Functional Mobility,Grooming, Dressing,Toileting,Bathing,Toilet Transfers Progress Towards Slow Progress due to Pain,Slow Progress due to Activity Goals Tolerance Assessment Summary Pt too tired to get up for OT but able to go over hip precautions needs and pt able to accurately identify and correct OT when able to demonstrate ADL and mobility activities. Pt to go to skilled rehab when medically stable. Goals Self-Feeding Goal Independent Grooming Goal Independent Dressing Goal Moderate Assistance Toileting Goal Minimal Assistance Bathing Goal Moderate Assistance Toilet Transfer Goal Minimal Assistance Shower Transfer Goal Minimal Assistance Patient/Caregiver Demonstrate Post-Op Precautions,Caregiver Independent Education Goal Assisting Patient Days to Meet Goals 20 Frequency of Treatment Other frequency 5x/week Treatment Plan OT Treatment Plan ADL Training,Functional Cognition Training,Functional Mobility Other Treatment Transfer to [facility] with MODA x2 with FWW. Recommendations and Next Treatment Focus Discharge Recommendations OT Discharge SNF Rehab Recommendations Transportation Needs Wheelchair/Cabulance at Discharge
[2025-01-04] MEDS: IBUPROFEN 400 MG TABLET PO ×2 (12:52→17:12)
[2025-01-04 14:50] VITALS: BP 92/48; PULSE 92
--- NOTE | 2025-01-04 15:13 | CM.DPNOTE ---
DCP Cont Therapies continue to recommend SNF. Spoke with patient about this and she agrees going home would not be safe at this time. Patient prefers SNF [facility]. Referral sent via email and is being reviewed now by Eloise in admissions. AUBREY
[2025-01-04 16:02] LABS: POC Glucose 193 mg/dL (70-99)
--- NOTE | 2025-01-04 16:24 | PT.IPTN ---
Current Diagnoses Unilateral primary osteoarthritis, right hip (01/02/25) Surgery Performed Operation Date: 01/02/25 13:45 Actual Procedures p Total Hip Arthroplasty(Right) - Shaniqua Hernandez MD Physical Therapy Treatment Note M2 PT-IP Current Condition Start: 01/03/25 12:38 Freq: NEEDED Status: Active Protocol: Document 01/03/25 10:50 AB (Rec: 01/03/25 12:49 AB [id number]) Physical Therapy Current Condition Current Condition Evaluation Date 01/03/25 Treatment Diagnosis s/p R TAMMIE posterior; difficulty in walking Onset Date 01/02/25 M3 PT-IP Subjective Start: 01/03/25 12:38 Freq: NEEDED Status: Active Protocol: Document 01/04/25 16:24 DLM (Rec: 01/04/25 16:41 DLM Desktop) Subjective Physical Therapy Visit Type Type Treatment Note Visit Start Time 15:52 Visit Stop Time 16:24 Notes 32 min Number of OCC THER Visits 0 Physical Therapy Visit Comments Patient Comments She is agreeable to going to SNF rehab. She reports having less pain this afternoon. Patient Goals Be able to go home Therapy Pain Assessment Pain When Pain Assessed After Treatment Pain Present Pain Present Pain Reported Location Right Hip Intensity 2 Scale Used Numeric (0 - 10) Description Aching,Tender,With Movement Pain Behaviors Wincing Pain Management Re-positioning Techniques M4 PT-IP Mobility and Gait Start: 01/03/25 12:38 Freq: NEEDED Status: Active Protocol: Document 01/04/25 16:24 DLM (Rec: 01/04/25 16:41 DLM Desktop) PT-Bed Mobility Assessment Supine to Sit Supine to Sit Moderate Assistance,2 Person Assistance,Head of Bed Elevated,Bedrails Scooting Scooting to Edge of Moderate Assistance Bed PT-Transfer Assessment Sit to and From Stand Sit to and from Moderate Assistance,2 Person Assistance,Use of Upper Stand Extremities Equipment Transfer Assistive Gait Belt,Front Wheeled Walker Device Transfers Transfer Destination Chair,Bedside Commode Transfer Technique Stand Step Pivot Transfer Ability Level of Assist Minimal Assistance,Moderate Assistance,1 Person Assistance,Use of Upper Extremities Comments Mobility Comments She needs two person assist for sit to stand and for bed mobility. Once on her feet she is able to transfer taking small steps with one person assist (second person stayed close for safety at this time). Pt up to bedside commode to urinate and then up to recliner. Pt stayed up in recliner with needs close. Gait Assessment Comments Gait Comments she was not able to progress to functional gait this visit PT-Balance Assessment Sitting Balance and Reactions Static Sitting Good Balance Ability Dynamic Sitting Good Balance Ability Standing Balance and Reactions Static Standing Fair Balance Ability Dynamic Standing Fair Balance Ability Device Used FWW M5 PT-IP Objective Assessments Start: 01/03/25 12:38 Freq: NEEDED Status: Active Protocol: Document 01/03/25 10:50 AB (Rec: 01/03/25 12:49 AB [id number]) Orientation Orientation/Cognition Level of Alertness Alert Orientation Name,Place,Situation Language Function Hard of Hearing Ability Safety Awareness Decreased Safety Awareness Memory Description Short Term Impaired Gross Range of Motion Lower Extremity ROM Assessment Within Functional Limits Strength Lower Extremity Strength Assessment Right Impaired Hip 3-/5 Knee 3/5 Sensation Assessment Sensation Gross Sensation WNL Muscle Tone Muscle Tone WNL Yes M6 PT-IP Treatment Start: 01/03/25 12:38 Freq: NEEDED Status: Active Protocol: Document 01/04/25 16:24 DLM (Rec: 01/04/25 16:41 DLM Desktop) Physical Therapy Treatment Exercises Exercises Ankle Pumps,Gluteal Sets,Seated Knee Flexion/Extension Education Education Provided Precautions,Safety M7 PT-IP Assessment and Plan Start: 01/03/25 12:38 Freq: NEEDED Status: Active Protocol: Document 01/04/25 16:24 DLM (Rec: 01/04/25 16:41 DLM Desktop) PT Summary Assessment and Plan Summary Impairments Pain,ROM,Strength,Balance,Coordination,Sensation,Tone, Cognition,Bed Mobility,Transfers,Gait,Activity Tolerance Progress Towards Slow Progress due to Pain,Slow Progress due to Activity Goals Tolerance Assessment Summary Sally is alert and resting in bed this afternoon. She reports she needs to use the bedside commode to urinate . She prefers to have two person assist and reports fearful of falling. She needs two person assist for bed mobility with great difficulty scooting on the bed. She needs two person assist to stand but once on her feet she can transfer with FWW and one person assist. She is progressing slowly but shows good improvement this afternoon compared to this morning. Continue to recommend SNF rehab at discharge due to her slow progression post-op. She is not safe to discharge home if she can not ambulate household distances. Goals Bed Mobility Goal Minimal Assistance Transfer Goal Minimal Assistance,Front Wheeled Walker Gait Goal Minimal Assistance,Front Wheel Walker Gait Distance 50 Other Goals improve bed mobility, transfers, ambulation using FWW ~ 100 ft SBA up/down 1 step using FWW SBA Days to Meet Goals 10 Frequency of Treatment Frequency Of Twice a Day Treatment Treatment Plan Physical Therapy Bed Mobility Training,Transfer Training,Gait Training, Treatment Plan Therapeutic Exercise,Balance Retraining,Post Op Education,Discharge Planning,Hot or Cold Pack, Neuromuscular Re-ed,Manual Therapy Precautions Posterior Hip No Hip Flexion > 90 degrees,No Hip Internal Rotation,No Precautions Hip Adduction Other Precautions fall risk Weight Bearing Status Weight Bearing Weight Bear as Tolerated Status Allowed Weight right LE with FWW Bearing Amount ( enter % or #) (%) Recommendations To Nursing Amount of Assist 2 Person Assist Needed Discharge Recommendations PT Discharge SNF Rehab Recommendations Transportation Needs Wheelchair/Cabulance at Discharge - PT assist 2
[2025-01-04 20:00] VITALS: BP 100/38; PULSE 85; RESP 18; TEMP 35.9; O2SAT 95
[2025-01-04 20:15] LABS: POC Glucose 273 mg/dL (70-99)
[2025-01-04] MEDS: ATORVASTATIN 20 MG TABLET PO (21:14)
--- NOTE | 2025-01-05 07:45 | PM.DS.1 ---
History of Present Illness History of Present Illness Date Patient Seen: 01/05/25 Time Patient Seen: 07:46 Chief complaint: OPB Narrative: She was admitted with severe right hip OA and other medical problems including diabetes and some mild asthma and morbid obesity. She underwent a right total hip arthroplasty. Discharge Providers Provider Date of admission: 01/02/25 15:26 Discharge Date: 01/05/25 Consults: 01/02/25 06:00 Consult to Anesthesiology Routine Comment: Consulting Provider: Anesthesiologist Reason for consultation: Regional block for post operative pain control Has provider been notified: No 01/02/25 20:45 Consult to Discharge Planning Routine Comment: Consult to Occupational Therapy Evaluate & Treat Comment: Physician Instructions: Evaluate and treat Consult to Physical Therapy Evaluate & Treat Comment: Physician Instructions: post op TAMMIE protocol Discharge provider: Shaniqua Hernandez MD Summary Hospital Course Discharge Diagnosis: Right hip OA. Diabetes. Morbid obesity Hospital Course: She underwent a right total hip arthroplasty. She tolerated the procedure but did have some issues with mild hypotension postoperatively. She required postoperative boluses. She had significant problem mobilizing with physical therapy. We worked with both therapy and nursing to help her mobilize. She does have help at home including a 30-year-old son and . Status at Discharge Cognitive/behavioral status at discharge: oriented Functional status at discharge: uses cane/walker Overall status at discharge: patient is progressing back to baseline Time Spent with Patient Time spent: Less than 30 minutes Exam Vital Signs (past 8 hours): Oxygen Delivery Method Room Air Oxygen Flow Rate 0 Narrative Exam Narrative: She is alert she is oriented she is resting comfortably in bed. She has mild pain with range motion in her right hip. She can fire toe flexors and extensors distally. Her dressing is dry. Her calves are soft bilaterally. Objective Labs 01/03/25 05:30 Labs: Laboratory Results - last 24 hr 01/04/25 01/04/25 01/04/25 07:57 11:35 16:01 POC Whole Bld Glucose 222 H 213 H 193 H 01/04/25 20:11 POC Whole Bld Glucose 273 H [facility] Medical History (Updated 09/21/22 @ 09:15 by Bryanna Rodas RN) Anxiety Psoriasis Osteoarthritis Diabetes Acid reflux HLD (hyperlipidemia) HTN (hypertension) Hearing loss History of COVID-19 Surgical History (Updated 12/25/24 @ 12:44 by Melani Gutierrez RN) Hx of laminectomy (04/05/23) History of arthroplasty of right shoulder History of total left hip replacement Hx of tonsillectomy History of hysterectomy Hx of cholecystectomy History of Estella fundoplication Social History household members: spouse and children Smoking Status: Never smoker alcohol intake: never Discharge Assessment & Plan Assessment and Plan Assessment: Postop day 2 right hip arthroplasty. Plan of Treatment: Discharge to home. ? Posterior Hip Pre-cautions. Ambulate and weight bear as tolerated with assistive devices. ? Aspirin 81 mg twice a day for 6 weeks for DVT prevention. ? Baseline pain relief with acetaminophen 500mg every 4 hours as needed and ibuprofen 400 mg every 4 hours as needed. ?Patient has been prescribed oxycodone 5 mg every 4 ?hours as needed for breakthrough pain. ? Initiate physical therapy in the next 5-10 days. ? Keep dressing clean and dry. Keep dressing on until first office visit. If dressing becomes dirty or disrupted, replace with appropriate sized dressing. Follow up in clinic in 2 weeks for wound check. Contact clinic if there are any questions or concerns. Discharge Plan Discharge Plan Patient Disposition: Home Transfer to: [facility] Provider Discharge Comment: DC pending PT approval Discharge orders & Medications Prescriptions: New aspirin 81 mg Tablet,Delayed Release (Dr/Ec) 81 mg PO BID Qty: 90 0RF Continued metformin 500 mg Tablet 1,000 mg PO BID lisinopril 20 mg Tablet 20 mg PO DAILY glipizide 10 mg Tablet 20 mg PO BID sertraline 100 mg Tablet 200 mg PO QAM simvastatin 40 mg Tablet 40 mg PO DAILY glimepiride 4 mg Tablet 4 mg PO BID ibuprofen 200 mg Tablet 600 mg PO DAILY PRN (Reason: Pain ) gabapentin 300 mg Capsule 900 mg PO BEDTIME gabapentin 600 mg tablet 600 mg PO 3XD Diet/Activity/Treatments Diet: Diet as Tolerated Activity: Ambulate multiple times a day. Use a cane or walker as needed. Full weight on leg. Cold/Heat Therapy: Use ice multiple times a day. Skin/Wound/Dressing Care Report to your healthcare provider any signs of infection, such as:: chills, fever, night sweats, unusual drainage and unusual redness Dressing: May shower. Leave dressing in place until follow up in office. No bathing or otherwise soaking incision. Call the office if the dressing becomes saturated inside. Visit Report/Discharge Packet Instructions: DI for Hip Replacement, DI for Prescription Opioid Use Stand Alone Forms: Patient Portal/API, Surgery Discharge Quality VTE Deep Vein Thrombosis/Pulmonary Embolism Present on Admission: No
[2025-01-05 07:52] LABS: POC Glucose 169 mg/dL (70-99)
[2025-01-05 08:00] VITALS: BP 128/58; PULSE 96; RESP 18; TEMP 36.1; O2SAT 96
[2025-01-05] MEDS: METFORMIN HCL 500 MG TABLET 1000 MG PO ×2 (10:33→21:33)
[2025-01-05] MEDS: SERTRALINE 50 MG TABLET 200 MG PO (10:33)
[2025-01-05] MEDS: TRAMADOL 50 MG TABLET 100 MG PO ×2 (10:33→21:33)
[2025-01-05 10:34] VITALS: BP 128/58; PULSE 96
[2025-01-05] MEDS: lisinopriL 20 MG TABLET PO (10:34)
[2025-01-05] MEDS: DOCUSATE 100 MG CAPSULE PO ×2 (10:34→21:33)
[2025-01-05] MEDS: ASPIRIN EC 81 MG TABLET PO ×2 (10:34→21:33)
[2025-01-05] MEDS: GABAPENTIN 600 MG TABLET PO ×3 (10:35→21:33)
[2025-01-05] MEDS: ACETAMINOPHEN 325 MG TABLET 650 MG PO ×2 (10:35→15:56)
[2025-01-05 11:38] LABS: POC Glucose 219 mg/dL (70-99)
--- NOTE | 2025-01-05 14:22 | OT.IP.TRT ---
Current Diagnoses Unilateral primary osteoarthritis, right hip (01/02/25) Surgery Performed Operation Date: 01/02/25 13:45 Actual Procedures p Total Hip Arthroplasty(Right) - Shaniqua Hernandez MD Occupational Therapy Treatment Note M2 OT-IP Current Condition Start: 01/03/25 15:54 Freq: Status: Active Protocol: Document 01/03/25 15:54 [facility] (Rec: 01/03/25 16:11 [facility] Desktop) Occupational Therapy Current Condition Current Condition Evaluation Date 01/03/25 Treatment Diagnosis S/P R TAMMIE Posterior approach Diagnosis Onset Date 01/02/25 Post Operative Precautions Posterior Hip No Hip Flexion > 90 degrees,No Hip Internal Rotation,No Precautions Hip Adduction Weight Bearing Status Weight Bearing Weight Bear as Tolerated Status M3 OT- IP Subjective and Pain Start: 01/03/25 15:54 Freq: Status: Active Protocol: Document 01/05/25 14:11 [facility] (Rec: 01/05/25 14:22 [facility] Desktop) OT- Subjective Occupational Therapy Visit Type Type Treatment Note Visit Start Time 12:35 Visit Stop Time 13:13 Occupational Therapy Visit Comments Patient Comments Pt agreed to get up use the BSC. Patient/Caregiver TO get better. Goals OT Pain Assessment Pain When Pain Assessed During Mobility Pain Present Pain Present Pain Reported Location Back Intensity 1 Scale Used Numeric (0 - 10) M4 OT- IP ADL's Start: 01/03/25 15:54 Freq: Status: Active Protocol: Document 01/05/25 14:11 [facility] (Rec: 01/05/25 14:22 [facility] Desktop) OT ADL-Dressing General Eval Lower Body Dressing Maximum Assistance Ability Areas Needing Socks Assistance OT ADL-Toileting General Evaluation Toileting Ability Total Assistance Areas Needing Perform Perineal Hygiene Assistance Comments OT Toileting MAX AX 2 to come to stand to the FWW and needing MOD/ Comments MAXA x1 to maintain standing to the FWW so nursing able to do pt's hygiene needs. M5 OT- IP IADL's Start: 01/03/25 15:54 Freq: Status: Active Protocol: Document 01/03/25 15:54 [facility] (Rec: 01/03/25 16:11 [facility] Desktop) OT-Instrumental Activities of Daily Living Home Safety Awareness Awareness of Need Decreased Awareness for Assistance at Home Home Safety Comments Pt feels that her son and will be able to effective assist her for her needs. Meal Preparation Meal Preparation Caregiver Provides Assist Pediatric Care Coordinator Pediatric Care Coordinator Caregiver Provides Assist M6 OT- IP Functional Cognition Start: 01/03/25 15:54 Freq: Status: Active Protocol: Document 01/05/25 14:11 [facility] (Rec: 01/05/25 14:22 [facility] Desktop) Cognitive Factors Limiting Selfcare Function Cognitive Comments Cognitive Assessment Pt realizing that probably best to go to skilled rehab Comments as pt still not able to take steps and just able to shuffle her feet side to side with the FWW. Pt still wanting her family to come in for training as requested by Dr. Hernandez. M7 OT- IP Mobility and Balance Start: 01/03/25 15:54 Freq: Status: Active Protocol: Document 01/05/25 14:11 [facility] (Rec: 01/05/25 14:22 [facility] Desktop) OT- Bed Mobility Assessment Supine to Sit Supine to Sit Assist Maximum Assistance,1 Person Assistance,Bedrails Scooting Scooting to Edge of Total Assistance,1 Person Assistance Bed OT-Transfer Assessment Sit to and From Stand Sit to and from Maximum Assistance,1 Person Assistance,2 Person Stand Assistance Transfers Transfer Ability Maximum Assistance,1 Person Assistance,2 Person Assistance Technique Transfer Destination Bed,Bedside Commode,Chair Devices Transfer Assistive Gait Belt,Front Wheeled Walker Devices Comments Mobility Comments MAXA x1 to get her trunk upright to the edge of the bed and scoot forwards. MAX AX 1 to stand to the FWW and pt just able to shuffle her feet side to side to get to the BSC. Needing nursing assist for hygiene and transfer to the recliner. Pt is very unsteady on her feet. Prior to getting up able to do LE exercises in bed to help prep her for the C trasnfer. OT- Balance Assessment Sitting Balance and Reactions Static Sitting Good Balance Ability Dynamic Sitting Fair Balance Ability Standing Balance and Reactions Static Standing Poor Balance Ability Dynamic Standing Poor Balance Ability M8 OT- IP Objective Assessments Start: 01/03/25 15:54 Freq: Status: Active Protocol: Document 01/03/25 15:54 [facility] (Rec: 01/03/25 16:11 [facility] Desktop) OT Gross Range of Motion Upper Extremity Range of Motion Assessment Bilaterally Impaired OT Strength Upper Extremity Strength Assessment Bilaterally Impaired Comments Strength Comments 4-/5 to 4/5 from proximal to distal. M9 OT- IP Assessment and Plan Start: 01/03/25 15:54 Freq: Status: Active Protocol: Document 01/05/25 14:11 [facility] (Rec: 01/05/25 14:22 [facility] Desktop) OT Summary Assessment and Plan Potential Rehabilitation Good Potential Analytic Complexity Low at Evaluation Summary OT Impairments Pain,Strength,Balance,Functional Mobility,Grooming, Dressing,Toileting,Bathing,Toilet Transfers Progress Towards Slow Progress due to Activity Tolerance Goals Assessment Summary Pt still needing extensive MAXA 1-2 person for transfer only and not able to take any steps as pt shuffle her feet to get to the [facility] and then recliner with the FWW. At this time best for pt to go to skilled rehab. Goals Self-Feeding Goal Independent Grooming Goal Independent Dressing Goal Moderate Assistance Toileting Goal Minimal Assistance Bathing Goal Moderate Assistance Toilet Transfer Goal Minimal Assistance Shower Transfer Goal Minimal Assistance Patient/Caregiver Demonstrate Post-Op Precautions,Caregiver Independent Education Goal Assisting Patient Days to Meet Goals 19 Frequency of Treatment Other frequency 5x/week Treatment Plan OT Treatment Plan ADL Training,Functional Cognition Training,Functional Mobility Other Treatment Transfer to [facility] with MODA x2 with FWW. Recommendations and Next Treatment Focus Discharge Recommendations OT Discharge SNF Rehab Recommendations Transportation Needs Wheelchair/Cabulance at Discharge
--- NOTE | 2025-01-05 14:50 | PT.IPTN ---
Current Diagnoses Unilateral primary osteoarthritis, right hip (01/02/25) Surgery Performed Operation Date: 01/02/25 13:45 Actual Procedures p Total Hip Arthroplasty(Right) - Shaniqua Hernandez MD Physical Therapy Treatment Note M2 PT-IP Current Condition Start: 01/03/25 12:38 Freq: NEEDED Status: Active Protocol: Document 01/03/25 10:50 AB (Rec: 01/03/25 12:49 AB [id number]) Physical Therapy Current Condition Current Condition Evaluation Date 01/03/25 Treatment Diagnosis s/p R TAMMIE posterior; difficulty in walking Onset Date 01/02/25 M3 PT-IP Subjective Start: 01/03/25 12:38 Freq: NEEDED Status: Active Protocol: Document 01/05/25 14:50 [facility] (Rec: 01/05/25 15:06 [facility] Desktop) Subjective Physical Therapy Visit Type Type Treatment Note Visit Start Time 14:00 Visit Stop Time 14:50 Notes 50 min Number of SAFETY MANAGER Visits 0 Physical Therapy Visit Comments Patient Comments She can not walk yet. Her is having difficulty walking due to right foot problems. She does not feel safe to go home yet and feels she needs SNF rehab at discharge. Patient Goals Get strong enough to go home Therapy Pain Assessment Pain When Pain Assessed After Treatment Pain Present Pain Present Pain Reported Location Right Hip Intensity 5 Scale Used Numeric (0 - 10) Description Aching,Tender,With Movement Pain Behaviors Facial Grimacing,Guarding Pain Management Apply Cold,Re-positioning Techniques M4 PT-IP Mobility and Gait Start: 01/03/25 12:38 Freq: NEEDED Status: Active Protocol: Document 01/05/25 14:50 [facility] (Rec: 01/05/25 15:06 [facility] Desktop) PT-Bed Mobility Assessment Sit to Supine Sit to Supine Minimal Assistance,Moderate Assistance,Bedrails Scooting Scooting Up and Down Maximum Assistance in Bed PT-Transfer Assessment Sit to and From Stand Sit to and from Moderate Assistance,1 Person Assistance,Use of Upper Stand Extremities Equipment Transfer Assistive Gait Belt,Front Wheeled Walker Device Transfers Transfer Destination Bed Transfer Technique Stand Step Pivot Transfer Ability Level of Assist Minimal Assistance,Use of Upper Extremities Comments Mobility Comments Pt sitting up in the recliner at the start of this visit. She reports that she has been up about 2 hours. Pt requested two person assist to stand up from the recliner so her Son assisted with sit-senior energy market coordinator addition to this therapist. Pt able to stand from the bed with one person assist. She stood at bedside x 3 reps to increase functional strength and standing tolerance. Pt is taking small scooting like steps and has difficulty clearing her feet on the floor for functional steps. She was able to take enough steps for transfers bed- chair but could not progress to gait this visit. Gait Assessment Comments Gait Comments unable Stair Climbing Assessment Comments Stair Climbing unable, has one step to enter the house and one step to Comments the room that has her recliner PT-Balance Assessment Sitting Balance and Reactions Static Sitting Good Balance Ability Dynamic Sitting Good Balance Ability Standing Balance and Reactions Static Standing Fair Balance Ability Dynamic Standing Fair Balance Ability Device Used FWW M5 PT-IP Objective Assessments Start: 01/03/25 12:38 Freq: NEEDED Status: Active Protocol: Document 01/03/25 10:50 AB (Rec: 01/03/25 12:49 AB [id number]) Orientation Orientation/Cognition Level of Alertness Alert Orientation Name,Place,Situation Language Function Hard of Hearing Ability Safety Awareness Decreased Safety Awareness Memory Description Short Term Impaired Gross Range of Motion Lower Extremity ROM Assessment Within Functional Limits Strength Lower Extremity Strength Assessment Right Impaired Hip 3-/5 Knee 3/5 Sensation Assessment Sensation Gross Sensation WNL Muscle Tone Muscle Tone WNL Yes M6 PT-IP Treatment Start: 01/03/25 12:38 Freq: NEEDED Status: Active Protocol: Document 01/05/25 14:50 [facility] (Rec: 01/05/25 15:06 [facility] Desktop) Physical Therapy Treatment Exercises Exercises Ankle Pumps,Gluteal Sets,Quad Sets,Heel Slides,Supine Hip Abduction,Seated Knee Flexion/Extension Education Education Provided Precautions,Safety Other Treatments Other Treatment Educated her and Son in her posterior hip Performed precautions. Discussed discharge issues. Her Son is able to physically assist her at home but her can not due to his own health issues. Reviewed right TAMMIE exercises with family. M7 PT-IP Assessment and Plan Start: 01/03/25 12:38 Freq: NEEDED Status: Active Protocol: Document 01/05/25 14:50 [facility] (Rec: 01/05/25 15:06 [facility] Desktop) PT Summary Assessment and Plan Summary Impairments Pain,ROM,Strength,Balance,Coordination,Sensation,Tone, Cognition,Bed Mobility,Transfers,Gait,Activity Tolerance Progress Towards Slow Progress due to Pain,Slow Progress due to Activity Goals Tolerance Assessment Summary Sally is alert and was up to the recliner at the start of this visit. She continues to have an external catheter to manage frequent urination needs. She continues to progress well but slowly with Physical Therapy. She has more difficulty with sit to stand from the recliner than the bed. She is able to take small steps and scoot her foot for transfers but continues to be able to advance to functional steps for gait. Her family is present today to participate in education and training. Continue to recommend discharge to SNF rehab with progression to home once she can ambulate functional distances and go up/down one step. Goals Bed Mobility Goal Minimal Assistance Transfer Goal Minimal Assistance,Front Wheeled Walker Gait Goal Minimal Assistance,Front Wheel Walker Gait Distance 50 Other Goals improve bed mobility, transfers, ambulation using FWW ~ 100 ft SBA up/down 1 step using FWW SBA Days to Meet Goals 10 Frequency of Treatment Frequency Of Twice a Day Treatment Treatment Plan Physical Therapy Bed Mobility Training,Transfer Training,Gait Training, Treatment Plan Therapeutic Exercise,Balance Retraining,Post Op Education,Discharge Planning,Hot or Cold Pack, Neuromuscular Re-ed,Manual Therapy Precautions Posterior Hip No Hip Flexion > 90 degrees,No Hip Internal Rotation,No Precautions Hip Adduction Other Precautions fall risk Weight Bearing Status Weight Bearing Weight Bear as Tolerated Status Allowed Weight right LE with FWW Bearing Amount ( enter % or #) (%) Recommendations To Nursing Amount of Assist 2 Person Assist Needed Discharge Recommendations PT Discharge SNF Rehab Recommendations Transportation Needs Wheelchair/Cabulance at Discharge - PT assist 1-2
--- NOTE | 2025-01-05 14:53 | CM.DPNOTE ---
DCP Cont Met w/patient to confirm plan; patient's spouse and son are at bedside. Patient would like to discharge to [facility] tomorrow. Eloise confirms patient can admit 01/06 and [facility] van transport has been arranged for [address]. Hospital exempt PASRR has been completed, signed and copy faxed to Letha Venegas via [employer]. Plan: Discharge to [facility] via [facility] van 01/06. [facility]
[2025-01-05] MEDS: IBUPROFEN 400 MG TABLET PO (15:57)
[2025-01-05 18:30] LABS: POC Glucose 295 mg/dL (70-99)
[2025-01-05 19:21] VITALS: BP 106/46; PULSE 65; RESP 17; TEMP 36; O2SAT 93
[2025-01-05 21:10] LABS: POC Glucose 273 mg/dL (70-99)
[2025-01-05] MEDS: ATORVASTATIN 20 MG TABLET PO (21:33)
[2025-01-06 08:00] VITALS: BP 118/47; PULSE 78; RESP 16; TEMP 35.9; O2SAT 95
--- NOTE | 2025-01-06 08:45 | PM.DS.1 ---
History of Present Illness History of Present Illness Date Patient Seen: 01/06/25 Time Patient Seen: 08:45 Chief complaint: OPB Narrative: Status post right hip arthroplasty by Dr. Hernandez. Addendum to previous discharge summary. Patient stayed overnight to work with physical therapy again. [facility] discharge due to decreased mobility. Pain controlled on tramadol. Discussed with the patient blood sugars have been high. Patient has had difficulty obtaining glucose monitored through Medicare but tries hard to watch her diet and takes oral antihyperglycemics. Encouraged to continue working on her blood sugars with her PCP. Hip pain controlled. No fevers chills nausea or vomiting. Vital signs stable. Discharge Providers Provider Date of admission: 01/02/25 15:26 Discharge Date: 01/06/25 Consults: 01/02/25 06:00 Consult to Anesthesiology Routine Comment: Consulting Provider: Anesthesiologist Reason for consultation: Regional block for post operative pain control Has provider been notified: No 01/02/25 20:45 Consult to Discharge Planning Routine Comment: Consult to Occupational Therapy Evaluate & Treat Comment: Physician Instructions: Evaluate and treat Consult to Physical Therapy Evaluate & Treat Comment: Physician Instructions: post op TAMMIE protocol Discharge provider: Tita Garsia MD Summary Hospital Course Discharge Diagnosis: Hip arthritis Hospital Course: The patient has a hip replacement on 01/02/[address] Hernandez. Was admitted to the floor afterwards mobilized with PT. had difficulty with mobilization initially and was indicated for retirement discharge. Stayed to work on home discharge but ultimately retirement placement discharge required. Pain was controlled on tramadol and gabapentin. The patient was maintained on a carb consistent diet and oral diabetes medications. And medically stable for discharge on the date of discharge. Status at Discharge Cognitive/behavioral status at discharge: oriented Functional status at discharge: uses cane/walker Overall status at discharge: patient is progressing back to baseline Exam Vital Signs (past 8 hours): - 01/06/25 08:00 Temperature 96.7 F L Pulse Rate 78 Respiratory Rate 16 Blood Pressure 118/47 L Pulse Oximetry 95 Oxygen Flow Rate 0 Oxygen Delivery Method Room Air Oxygen Flow Rate 0 Narrative Exam Narrative: Alert and oriented no acute distress. Sitting up in bed. Right hip dressing clean and intact. Just a small amount of drainage. Nadeen functioning. Thigh and calf soft. 5/5 dorsiflexion plantar flexion. Objective Labs 01/03/25 05:30 Labs: Laboratory Results - last 24 hr 01/05/25 01/05/25 01/05/25 11:37 18:20 20:56 POC Whole Bld Glucose 219 H 295 H 273 H PFSH Medical History (Updated 09/21/22 @ 09:15 by Bryanna Rodas RN) Anxiety Psoriasis Osteoarthritis Diabetes Acid reflux HLD (hyperlipidemia) HTN (hypertension) Hearing loss History of COVID-19 Surgical History (Updated 12/25/24 @ 12:44 by Melani Gutierrez RN) Hx of laminectomy (04/05/23) History of arthroplasty of right shoulder History of total left hip replacement Hx of tonsillectomy History of hysterectomy Hx of cholecystectomy History of Estella fundoplication Social History household members: spouse and children Smoking Status: Never smoker alcohol intake: never Discharge Assessment & Plan Assessment and Plan Assessment: Postop day 3 right hip arthroplasty. Plan of Treatment: Discharge to home. ? Posterior Hip Pre-cautions. Ambulate and weight bear as tolerated with assistive devices. ? Aspirin 81 mg twice a day for 6 weeks for DVT prevention. ? Baseline pain relief with acetaminophen 500mg every 4 hours as needed and ibuprofen 400 mg every 4 hours as needed. ?Patient has been prescribed oxycodone 5 mg every 4 ?hours as needed for breakthrough pain. ? Initiate physical therapy in the next 5-10 days. ? Keep dressing clean and dry. Keep dressing on until first office visit. If dressing becomes dirty or disrupted, replace with appropriate sized dressing. Follow up in clinic in 2 weeks for wound check. Contact clinic if there are any questions or concerns. Discharge Plan Discharge Plan Patient Disposition: SNF Transfer to: [facility] Provider Discharge Comment: DC pending PT approval Discharge orders & Medications Prescriptions: New aspirin 81 mg Tablet,Delayed Release (Dr/Ec) 81 mg PO BID Qty: 90 0RF polyethylene glycol 3350 17 gram Powder In Packet 17 gm PO DAILY PRN (Reason: Constipation) Qty: 10 0RF tramadol 50 mg Tablet 100 mg PO QID PRN (Reason: Pain, Moderate (4-6)) Qty: 60 0RF hydroxyzine HCl 25 mg Tablet 25 mg PO Q6H PRN (Reason: Nausea) Qty: 30 0RF ondansetron 4 mg Tablet,Disintegrating 4 mg PO Q4HR PRN (Reason: Nausea) Qty: 10 0RF Continued metformin 500 mg Tablet 1,000 mg PO BID lisinopril 20 mg Tablet 20 mg PO DAILY glipizide 10 mg Tablet 20 mg PO BID sertraline 100 mg Tablet 200 mg PO QAM simvastatin 40 mg Tablet 40 mg PO DAILY glimepiride 4 mg Tablet 4 mg PO BID ibuprofen 200 mg Tablet 600 mg PO DAILY PRN (Reason: Pain ) gabapentin 300 mg Capsule 900 mg PO BEDTIME gabapentin 600 mg tablet 600 mg PO 3XD Diet/Activity/Treatments Diet: Diet as Tolerated Activity: Ambulate multiple times a day. Use a cane or walker as needed. Full weight on leg. Cold/Heat Therapy: Use ice multiple times a day. Skin/Wound/Dressing Care Report to your healthcare provider any signs of infection, such as:: chills, fever, night sweats, unusual drainage and unusual redness Dressing: May shower. Leave dressing in place until follow up in office. No bathing or otherwise soaking incision. Call the office if the dressing becomes saturated inside. [facility] Reason for rehabilitation: Post-operative therapy Rehab type: Physical therapy Visit Report/Discharge Packet Instructions: DI for Hip Replacement, DI for Prescription Opioid Use Stand Alone Forms: Patient Portal/API, Surgery Discharge Quality VTE Deep Vein Thrombosis/Pulmonary Embolism Present on Admission: No
[2025-01-06] MEDS: METFORMIN HCL 500 MG TABLET 1000 MG PO (09:23)
[2025-01-06] MEDS: SERTRALINE 50 MG TABLET 200 MG PO (09:23)
[2025-01-06] MEDS: ACETAMINOPHEN 325 MG TABLET 650 MG PO (09:23)
[2025-01-06] MEDS: ASPIRIN EC 81 MG TABLET PO (09:23)
[2025-01-06 09:24] VITALS: BP 118/47; PULSE 78
[2025-01-06] MEDS: TRAMADOL 50 MG TABLET 100 MG PO (09:24)
[2025-01-06] MEDS: lisinopriL 20 MG TABLET PO (09:24)
[2025-01-06] MEDS: GABAPENTIN 600 MG TABLET PO (09:27)
--- NOTE | 2025-01-06 09:29 | PT.IPTN ---
Current Diagnoses Unilateral primary osteoarthritis, right hip (01/02/25) Surgery Performed Operation Date: 01/02/25 13:45 Actual Procedures p Total Hip Arthroplasty(Right) - Shaniqua Hernandez MD Physical Therapy Treatment Note M2 PT-IP Current Condition Start: 01/03/25 12:38 Freq: NEEDED Status: Active Protocol: Document 01/03/25 10:50 AB (Rec: 01/03/25 12:49 AB [id number]) Physical Therapy Current Condition Current Condition Evaluation Date 01/03/25 Treatment Diagnosis s/p R TAMMIE posterior; difficulty in walking Onset Date 01/02/25 M3 PT-IP Subjective Start: 01/03/25 12:38 Freq: NEEDED Status: Active Protocol: Document 01/06/25 09:29 DLM (Rec: 01/06/25 09:34 DLM Desktop) Subjective Physical Therapy Visit Type Type Treatment Note Visit Start Time 09:15 Visit Stop Time 09:29 Notes 14 min Number of DIGITAL SALES REPRESENTATIVE Visits 0 Physical Therapy Visit Comments Patient Comments She wants to wait to get up until wheelchair is here to transport her to SNF rehab this morning. She does not want to get dressed before leaving. Therapy Pain Assessment Pain When Pain Assessed During Exercise Pain Present Pain Present Pain Reported Location Right Hip Intensity 4 Scale Used Numeric (0 - 10) Description Aching,Tender,With Movement Pain Behaviors Facial Grimacing,Guarding Pain Management Apply Cold,Re-positioning Techniques M4 PT-IP Mobility and Gait Start: 01/03/25 12:38 Freq: NEEDED Status: Active Protocol: M5 PT-IP Objective Assessments Start: 01/03/25 12:38 Freq: NEEDED Status: Active Protocol: Document 01/03/25 10:50 AB (Rec: 01/03/25 12:49 AB [id number]) Orientation Orientation/Cognition Level of Alertness Alert Orientation Name,Place,Situation Language Function Hard of Hearing Ability Safety Awareness Decreased Safety Awareness Memory Description Short Term Impaired Gross Range of Motion Lower Extremity ROM Assessment Within Functional Limits Strength Lower Extremity Strength Assessment Right Impaired Hip 3-/5 Knee 3/5 Sensation Assessment Sensation Gross Sensation WNL Muscle Tone Muscle Tone WNL Yes M6 PT-IP Treatment Start: 01/03/25 12:38 Freq: NEEDED Status: Active Protocol: Document 01/06/25 09:29 DLM (Rec: 01/06/25 09:34 DLM Desktop) Physical Therapy Treatment Exercises Exercises Ankle Pumps,Gluteal Sets,Quad Sets,Heel Slides,Supine Hip Abduction Education Education Provided Precautions,Safety Other Treatments Other Treatment Reviewed hip precautions. Performed Other exercise performed in supine is short arc quads x 10 reps She needs therapist assist for heel slides and supine hip abduction M7 PT-IP Assessment and Plan Start: 01/03/25 12:38 Freq: NEEDED Status: Active Protocol: Document 01/06/25 09:29 DLM (Rec: 01/06/25 09:34 DLM Desktop) PT Summary Assessment and Plan Summary Impairments Pain,ROM,Strength,Balance,Coordination,Sensation,Tone, Cognition,Bed Mobility,Transfers,Gait,Activity Tolerance Progress Towards Slow Progress due to Pain,Slow Progress due to Activity Goals Tolerance Assessment Summary Sally agreed to only do her right TAMMIE exercises this AM. She is planning to discharge to SNF rehab and does not want to get out of bed until ready to leave. She needs assist with her exercises but shows small improvements in her active ROM right LE. Goals Bed Mobility Goal Minimal Assistance Transfer Goal Minimal Assistance,Front Wheeled Walker Gait Goal Minimal Assistance,Front Wheel Walker Gait Distance 50 Other Goals improve bed mobility, transfers, ambulation using FWW ~ 100 ft SBA up/down 1 step using FWW SBA Days to Meet Goals 10 Frequency of Treatment Frequency Of Twice a Day Treatment Treatment Plan Physical Therapy Bed Mobility Training,Transfer Training,Gait Training, Treatment Plan Therapeutic Exercise,Balance Retraining,Post Op Education,Discharge Planning,Hot or Cold Pack, Neuromuscular Re-ed,Manual Therapy Precautions Posterior Hip No Hip Flexion > 90 degrees,No Hip Internal Rotation,No Precautions Hip Adduction Other Precautions fall risk Weight Bearing Status Weight Bearing Weight Bear as Tolerated Status Allowed Weight right LE with FWW Bearing Amount ( enter % or #) (%) Recommendations To Nursing Amount of Assist 2 Person Assist Needed Discharge Recommendations PT Discharge SNF Rehab Recommendations Transportation Needs Wheelchair/Cabulance at Discharge - PT assist 1-2
--- NOTE | 2025-01-06 11:29 | CM.DPNOTE ---
DCP note PSYCHOLOGIST DEVELOPMENTAL reviewed EMR per surgeon, cleared for DC to SNF today. gave this PSYCHOLOGIST DEVELOPMENTAL signed meds/scripts. PSYCHOLOGIST DEVELOPMENTAL emailed Eloise/Griselda at [facility] dc summary, meds, scripts, PASRR, and available MAR. placed PASRR/meds in chart. updated RN/CIVIL DEFENSE DIRECTOR. Confirmed with Eloise Kunz to p/u pt at 1030. P: dc today to [facility] via [facility] at 1030. CM team will continue to follow as needed for DCP coordination JULIO Payne
--- NOTE | 2025-01-06 11:59 | PC.NURSE ---
Pt discharged to [facility] at 1057, escorted off floor in wheelchair accompanied by transport personnel. Discharge instructions included in packet for facility, report called to Anais ([phone]) at [phone]. Patient left the floor with all belongings.
[2025-01-07 07:45] LABS: POC Glucose 144 mg/dL (70-99)
== END 2025-01-06 11:00 | DRG 470 ==
LOC: OR 01-03 13:48 → AC 01-03 13:48
PROVIDERS: Admitting Provider Orthopaedic Surgery; Referring Provider Orthopaedic Surgery; Visit Provider Orthopaedic Surgery
PROC: 0SR90JZ Replacement of Right Hip Joint with Synthetic Substitute, Open Approach (ICD-10-PCS; CPT 27130; principal; 2025-01-02 13:45)
DX: M16.11 Unilateral primary osteoarthritis, right hip (principal); E66.01 Morbid (severe) obesity due to excess calories; J45.909 Unspecified asthma, uncomplicated; E11.9 Type 2 diabetes mellitus without complications; I95.81 Postprocedural hypotension; M62.838 Other muscle spasm; I10 Essential (primary) hypertension; E78.5 Hyperlipidemia, unspecified; F41.9 Anxiety disorder, unspecified; Z68.39 Body mass index [BMI] 39.0-39.9, adult; Z79.84 Long term (current) use of oral hypoglycemic drugs
CPT/HCPCS: 36415; 72170; 73502; 82962; 85014; 85018; 97110; 97129; 97130; 97162; 97165; 97530; 97535; C1776; J0131; J0171; J0330; J0666; J0690; J1100; J1171; J2405; J2704; J3010